=== PATIENT | male | born 1935 ===

== ENCOUNTER 2016-08-05 17:13 | Inpatient (IN) | payer MEDICARE, BC ==
[2016-08-05 17:13] VITALS: BMI 31.3
[2016-08-05] MEDS ORDERED: Sodium Chloride 0.9% 1,000 ML IV ONE (17:58)
--- NOTE | 2016-08-05 18:04 | C.PDOC ---
History Of Present Illness 81M c/o diffuse abd pain for 2 days and nausea vomiting after any PO intake today. he has a hx of multiple SBO and this feels similar. he had an episode of non-bloody diarrhea this morning. currently has nausea but no pain. Time Seen by Provider: 08/05/16 17:38 Chief Complaint (Nursing): GI Problem Past Medical History Vital Signs: Last Vital Signs Temp 98.6 F 08/05/16 17:29 Pulse 111 H 08/05/16 17:29 Resp 20 08/05/16 17:29 BP 144/93 H 08/05/16 17:29 Pulse Ox 95 08/05/16 18:49 - Medical History PMH: Diabetes, HTN, Malignancy (colon CA, rectal CA), Migraine - [facility] Procedures INSERT GASTRIC TUBE NEC (06/14/14) OTH INCIDENT APPENDECTOMY (08/08/12) OTH LYSIS-PERITONEAL ADHES (08/08/12) PARENTERAL INFUSION OF CONCENTRATED NUT. SUBSTANCE (09/27/13) PART SM BOWEL RESECT NEC (08/08/12) VACCINATION NEC (09/27/13) VENOUS CATHETERIZATION NEC (09/27/13) Family History: States: Unknown Family Hx - Social History Hx Tobacco Use: No Hx Alcohol Use: No Hx Substance Use: No - Immunization History Hx Tetanus Toxoid Vaccination: No Hx Influenza Vaccination: No Hx Pneumococcal Vaccination: No Review Of Systems Except As Marked, All Systems Reviewed And Found Negative. Constitutional: Negative for: Fever, Weakness, Malaise Cardiovascular: Negative for: Chest Pain Respiratory: Negative for: Cough, Shortness of Breath Gastrointestinal: Positive for: Nausea, Vomiting, Abdominal Pain, Diarrhea. Negative for: Melena, Hematochezia Genitourinary: Negative for: Dysuria Neurological: Negative for: Weakness, Numbness, Headache Physical Exam - Physical Exam Appears: Well, Non-toxic, No Acute Distress Skin: Warm, Dry Head: Atraumatic Nose: No Epistaxis Oral Mucosa: Moist Neck: Normal ROM Cardiovascular: Rhythm Regular Respiratory: No Decreased Breath Sounds, No Accessory Muscle Use Gastrointestinal/Abdominal: Bowel Sounds (decreased), Soft, No Tenderness, No Distention, No Guarding, No Rebound, Other (colostomy in place) Extremity: No Swelling Neurological/Psych: Oriented x3, Other (no focal deficits) ED Course And Treatment - Laboratory Results Result Diagrams: 08/05/16 18:05 08/05/16 18:05 ECG: Interpreted By Me, Viewed By Me ECG Rhythm: Sinus Rhythm (99), Atrial Fibrillation Interpretation Of ECG: LAFB No-Stemi Rate From EC O2 Sat by Pulse Oximetry: 95 Medical Decision Making Medical Decision Making: adri Gutierrez who will admit Disposition - Disposition Disposition: HOSPITALIZED Disposition Time: 19:24 Condition: STABLE - Clinical Impression Clinical Impression: Small bowel obstruction
[2016-08-05 18:10] LABS: BASO % 0.4 % (0.0-2.0); EOS % 0.2 % (0.0-4.0); HEMATOCRIT 48.9 % (35.0-51.0); LYMPH # 0.7 K/uL (1.0-4.3); LYMPH % 16.5 % (20.0-40.0); MEAN CELL VOLUME 84.8 fL (80.0-94.0); MEAN CORPUSCULAR HEMOGLOBIN 28.1 pg (27.0-31.0); MEAN CORPUSCULAR HGB CONC 33.1 g/dL (33.0-37.0); MEAN PLATELET VOLUME 8.8 fL (7.2-11.7); MONO # 0.8 K/uL (0.0-0.8); MONO % 19.3 % (0.0-10.0); RED CELL DISTRIBUTION WIDTH 14.6 % (11.5-14.5); WHITE BLOOD COUNT 4.4 K/uL (4.8-10.8)
[2016-08-05 18:15] LABS: RBC URINE 5 /hpf (0-3); URINE BACTERIA RARE (<OCC); URINE BILIRUBIN NEGATIVE (NEGATIVE); URINE BLOOD 1+ (NEGATIVE); URINE COLOR Amber (YELLOW); URINE GLUCOSE (UA) NORMAL (Normal); URINE KETONE 1+ mg/dL (NEGATIVE); URINE LEUKOCYTE ESTERASE NEG Leu/uL (Negative); URINE PROTEIN 2+ mg/dL (NEGATIVE); URINE UROBILINOGEN NORMAL mg/dL (0.2-1.0); WBC URINE 1 /hpf (0-5)
[2016-08-05 18:16] LABS: CHLORIDE 101 mmol/L (98-107)
[2016-08-05 18:17] LABS: POTASSIUM 3.9 mmol/L (3.6-5.2); SODIUM 138 mmol/L (132-148)
[2016-08-05] MEDS ORDERED: Sodium Chloride 0.9% 1,000 ML ONE (18:17)
[2016-08-05 18:19] LABS: GFR AFRICAN-AMERICAN 59
[2016-08-05 18:20] LABS: ALB/GLOB RATIO 1.2 (1.0-2.1); ALKALINE PHOSPHATASE 91 U/L (38-126); ALT/SGPT 22 U/L (21-72); AST/SGOT 19 U/L (17-59); BILIRUBIN,TOTAL 0.9 mg/dL (0.2-1.3); BLOOD UREA NITROGEN 32 mg/dL (9-20); CALCIUM 8.8 mg/dl (8.6-10.4); CARBON DIOXIDE 21 mmol/L (22-30); GLUCOSE,RANDOM 141 mg/dL (75-110); TOTAL PROTEIN 7.8 g/dL (6.3-8.3)
--- NOTE | 2016-08-05 20:08 | CP.PCM.HP ---
History of Present Illness - History of Present Illness History of Present Illness: cc: "abdominal pain and nausea/vomiting Patient is an 83 year old male with PMH of Colon CA s/p resection and chemo, Prostate CA, Rectal CA, GERD, DM, HTN, CKD presenting to the ED complaining of abdominal pain, nausea/vomiting that started about 3 days ago. Patient reported sudden on set and states symptoms have been progressively getting worse. Patient has experienced these symptom before several times. He has history of recurrent SBOs. He has had multiple abdominal surgeries in the past. Patient currently denying any pain. He rated the abdominal pain as 2/10 in severity at its worst. He describes the pain as intermittent and cramping located in the peeriumbilical region without radiation. It was accompanied by nausea/vomiting and diarrhea. He reports 4 episodes of dark wahl vomit today and two episodes each day prior. he denies hemetemesis. Patient states he has had diarrhea since tuesday along with increased flatus. Colostomy is still producing loose stool. He reports that he has had SBO 8 times previously and reports that it usually resolves on its own. Patient had to have surgery one incident for treatment. Denies fever/chills, cp, sob, palpitations, incontinence, constipation, numbness /tingling, hemotypsis, hematochezia. PMD: Dr. Gutierrez PMH: Colon CA s/p resection and chemo, Prostate CA, Rectal CA, GERD, DM, HTN, CKD, Afib Meds: Amlodipine/Benzep 10-40 Daily, Eliquis 2.5mg Daily, Metformin 1000 mg PO BID, Nexium 20 mg PO daily Allergy: NKDA PSH: Colon resection and colostomy 2007 at [place], Prostectomy 2000, Lysis of adhesions with small bowel resection Dr. Richter 2012. FH: denies Social: No tob, no alcohol, no drugs. Lives at home with Present on Admission - Present on Admission Any Indicators Present on Admission: No History of DVT/PE: No History of Uncontrolled Diabetes: No Urinary Catheter: No Decubitus Ulcer Present: No Past Patient History - Past Medical History & Family History Past Medical History?: Yes - Past Social History Smoking Status: Never Smoked - CARDIAC Hx Hypertension: Yes - PULMONARY Hx Respiratory Disorders: No - NEUROLOGICAL Hx Migraine: Yes - HEENT Hx HEENT Problems: No - RENAL Hx Chronic Kidney Disease: No - ENDOCRINE/METABOLIC Hx Endocrine Disorders: Yes Hx Diabetes Mellitus Type 2: Yes - HEMATOLOGICAL/ONCOLOGICAL Hx Blood Disorders: Yes Hx Cancer: Yes (rectal ca) - INTEGUMENTARY Hx Dermatological Problems: No - MUSCULOSKELETAL/RHEUMATOLOGICAL Hx Musculoskeletal Disorders: No Hx Falls: No - GASTROINTESTINAL Hx Gastrointestinal Disorders: Yes Hx Bowel Surgery: Yes (Colon resection) Hx Colostomy: Yes Hx Gastroesophageal Reflux: Yes Hx Nausea: Yes Hx Vomiting: Yes Other/Comment: previously has had small bowel obstructions - GENITOURINARY/GYNECOLOGICAL Hx Genitourinary Disorders: Yes Hx Prostate Problems: Yes (Prostatectomy) - PSYCHIATRIC Hx Substance Use: No - SURGICAL HISTORY Hx Surgeries: Yes Other/Comment: colostomy bag - ANESTHESIA Hx Anesthesia: Yes Hx Anesthesia Reactions: No Hx Malignant Hyperthermia: No Meds Allergies/Adverse Reactions: Allergies Allergy/AdvReac Type Severity Reaction Status Date / Time No Known Allergies Allergy Verified 08/05/16 17:20 Physical Exam - Constitutional Appears: No Acute Distress - Head Exam Head Exam: ATRAUMATIC, NORMOCEPHALIC - Eye Exam Eye Exam: EOMI, Normal appearance Pupil Exam: NORMAL ACCOMODATION - ENT Exam ENT Exam: Mucous Membranes Dry - Neck Exam Neck exam: Positive for: Normal Inspection - Respiratory Exam Respiratory Exam: Clear to Auscultation Bilateral, NORMAL BREATHING PATTERN - Cardiovascular Exam Cardiovascular Exam: Irregular Rhythm, +S1, +S2. absent: Tachycardia - GI/Abdominal Exam GI & Abdominal Exam: Diminished Bowel Sounds, Soft. absent: Firm, Guarding, Rebound, Rigid, Tenderness - Extremities Exam Extremities exam: Positive for: normal capillary refill, pedal pulses present. Negative for: calf tenderness, pedal edema - Back Exam Back exam: absent: CVA tenderness (L), CVA tenderness (R) - Neurological Exam Neurological exam: Alert, CN II-XII Intact, Oriented x3 - Psychiatric Exam Psychiatric exam: Normal Affect, Normal Mood - Skin Skin Exam: Dry, Intact, Normal Color, Warm Results - Vital Signs Recent Vital Signs: Last Vital Signs Temp 98.6 F 08/05/16 17:29 Pulse 111 H 08/05/16 17:29 Resp 20 08/05/16 17:29 BP 144/93 H 08/05/16 17:29 Pulse Ox 95 08/05/16 19:35 - Labs Result Diagrams: 08/05/16 18:05 08/05/16 18:05 Assessment & Plan - Assessment and Plan (Free Text) Plan: 1. SBO Obstructive Series NPO except meds Serial abdominal exams General Surgery Consult, Dr. Edmonds, help appreciated Zofran 4mg IVP Q6h prn D5 1/2 NS 100 cc/hr 2. Atrial Fibrillation Eliquis 2.5 mg PO daily 3. DM ISS Accuchecks Monitor Glucose 4. HTN Amlodipine 10mg PO Daily 5. Prophylactic Measures SCDs Protonix 40mg IVP daily
[2016-08-05] MEDS: Dextrose 5%/0.45% NS 1,000 ML IV SCH (20:24)
[2016-08-05] MEDS: (Novolin R) Insulin Human Regular 100 units/ml vial SC SCH (20:27)
--- NOTE | 2016-08-05 22:23 | CP.PCM.CON ---
History of Present Illness - History of Present Illness History of Present Illness: Surgery Consult Note for Dr. Edmonds CC: "Vomiting" HPI: Pt is a 81yo M w/PMHx of multiple abdominal surgeries leading to recurrent SBOs, DM2, HTN, CKD, Afib and colorectal and prostate cancer in remission admitted by medicine for nausea and vomiting. C/o nausea and dark jean baptiste vomiting x 3 days. He has had 4 prior episodes leading to admission in the past year, most recently 05/05/16 to 05/07/16. He states that his current episode is the same as he previous episodes. He ate breakfast Tuesday and didn't feel well afterwards. He vomited 3 times 08/03, had diarrhea 08/04 and vomiting 3 more times today. He states that eating and drinking incite his nausea, and after vomiting he feels some acidic pain and then relief. His last episode of vomiting was at 4pm, he has had a diarrheal BM and passed gas today. MedHx: recurrent SBO, colorectal cancer in remission, prostate cancer in remission, DM2, HTN, AFib PSH: partial SB resection 2012, partial colectomy , permanent colostomy 2006, ex lap, prostatectomy 2000, portacath and removal SocialHx: Lives with his and is retired. Has 1 adult son 27yo who lives in [place]. Denies alcohol, tobacco, illicit drug use ever. Review of Systems - Constitutional Constitutional: Daytime Sleepiness, Weight Loss. absent: Chills, Fatigue, Fever - EENT Ears: As Per HPI - Cardiovascular Cardiovascular: absent: Chest Pain, Dyspnea, Lightheadedness, Palpitations - Respiratory Respiratory: absent: Cough, Dyspnea, Wheezing - Gastrointestinal Gastrointestinal: Bloating, Diarrhea, Heartburn, Nausea, Vomiting. absent: Abdominal Pain - Genitourinary Genitourinary: absent: Change in Urinary Stream - Musculoskeletal Musculoskeletal: As Per HPI - Psychiatric Psychiatric: absent: Anxiety Past Patient History - Past Medical History & Family History Past Medical History?: Yes - Past Social History Smoking Status: Never Smoked - CARDIAC Hx Hypertension: Yes - PULMONARY Hx Respiratory Disorders: No - NEUROLOGICAL Hx Migraine: Yes - HEENT Hx HEENT Problems: No - RENAL Hx Chronic Kidney Disease: No - ENDOCRINE/METABOLIC Hx Endocrine Disorders: Yes Hx Diabetes Mellitus Type 2: Yes - HEMATOLOGICAL/ONCOLOGICAL Hx Blood Disorders: Yes Hx Cancer: Yes (rectal ca) - INTEGUMENTARY Hx Dermatological Problems: No - MUSCULOSKELETAL/RHEUMATOLOGICAL Hx Musculoskeletal Disorders: No Hx Falls: No - GASTROINTESTINAL Hx Gastrointestinal Disorders: Yes Hx Bowel Surgery: Yes (Colon resection) Hx Colostomy: Yes Hx Gastroesophageal Reflux: Yes Hx Nausea: Yes Hx Vomiting: Yes Other/Comment: previously has had small bowel obstructions - GENITOURINARY/GYNECOLOGICAL Hx Genitourinary Disorders: Yes Hx Prostate Problems: Yes (Prostatectomy) - PSYCHIATRIC Hx Substance Use: No - SURGICAL HISTORY Hx Surgeries: Yes Other/Comment: colostomy bag - ANESTHESIA Hx Anesthesia: Yes Hx Anesthesia Reactions: No Hx Malignant Hyperthermia: No Meds Allergies/Adverse Reactions: Allergies Allergy/AdvReac Type Severity Reaction Status Date / Time No Known Allergies Allergy Verified 08/05/16 17:20 - Medications Medications: Current Medications Acetaminophen (Tylenol 325mg Tab) 650 mg PO Q6 PRN PRN Reason: Pain, Mild (1-3) Amlodipine Besylate (Norvasc) 10 mg PO DAILY [facility] Apixaban (Eliquis) 2.5 mg PO DAILY [facility] Dextrose/Sodium Chloride (Dextrose 5%/0.45% Ns 1000 Ml) 1,000 mls @ 100 mls/hr IV .Q10H [facility] Last Admin: 08/05/16 20:24 Dose: 100 mls/hr Insulin Human Regular (Novolin R) 0 unit SC ACHS ANDI PRN Reason: Protocol Last Admin: 08/05/16 20:27 Dose: Not Given Metformin HCl (Glucophage) 1,000 mg PO BID [facility] Ondansetron HCl (Zofran Inj) 4 mg IVP Q6 PRN PRN Reason: Nausea/Vomiting Pantoprazole Sodium (Protonix Inj) 40 mg IVP DAILY [facility] Physical Exam - Constitutional Appears: Non-toxic, No Acute Distress - Head Exam Head Exam: NORMAL INSPECTION - Eye Exam Eye Exam: EOMI, Normal appearance Pupil Exam: NORMAL ACCOMODATION - ENT Exam ENT Exam: Mucous Membranes Moist - Neck Exam Neck exam: Negative for: Lymphadenopathy, Thyromegaly - Respiratory Exam Respiratory Exam: Clear to Auscultation Bilateral. absent: Rales, Rhonchi, Wheezes - Cardiovascular Exam Cardiovascular Exam: Tachycardia, +S1, +S2. absent: Gallop - GI/Abdominal Exam GI & Abdominal Exam: Diminished Bowel Sounds, Soft. absent: Guarding, Rebound, Rigid, Tenderness - Rectal Exam Rectal Exam: Deferred - Extremities Exam Extremities exam: Positive for: full ROM - Neurological Exam Neurological exam: Alert, CN II-XII Intact - Psychiatric Exam Psychiatric exam: Normal Affect, Normal Mood - Skin Skin Exam: Dry, Intact, Normal Color Results - Vital Signs Recent Vital Signs: Last Vital Signs Temp 98.1 F 08/05/16 21:20 Pulse 98 H 08/05/16 21:20 Resp 20 08/05/16 21:20 BP 114/77 08/05/16 21:20 Pulse Ox 96 08/05/16 21:20 - Labs Result Diagrams: 08/05/16 18:05 08/05/16 18:05 Labs: Laboratory Results - last 24 hr 08/05/16 08/05/16 20:25 21:35 POC Glucose (mg/dL) 106 143 H Assessment & Plan - Assessment and Plan (Free Text) Assessment: 81 yo M w/ PMHx of recurrent SBOs leading to hospitalization , multiple GI surgeries, colorectal cancer in remission, prostate cancer in remission, DM2, HTN, CKD presents with obstructive symptoms. 1. SBO -Afebrile, VSS -serial abdominal exams -advance diet as tolerated -NG tube deferred but will consider if patient vomits -continue medical management as per medicine team
[2016-08-06 01:32] VITALS: RESP 20
[2016-08-06] MEDS: Dextrose 5%/0.45% NS 1,000 ML IV SCH ×2 (05:50→16:18)
[2016-08-06 07:08] LABS: BASO % 0.3 % (0.0-2.0); EOS # 0.1 K/uL (0.0-0.7); EOS % 3.8 % (0.0-4.0); HEMATOCRIT 41.8 % (35.0-51.0); LYMPH # 0.9 K/uL (1.0-4.3); LYMPH % 22.9 % (20.0-40.0); MEAN CELL VOLUME 85.9 fL (80.0-94.0); MEAN CORPUSCULAR HEMOGLOBIN 28.7 pg (27.0-31.0); MEAN CORPUSCULAR HGB CONC 33.4 g/dL (33.0-37.0); MEAN PLATELET VOLUME 8.5 fL (7.2-11.7); MONO % 25.4 % (0.0-10.0); NRBC % 0.1 % (0.0-2.0); PLATELET COUNT 146 K/uL (130-400); RED CELL DISTRIBUTION WIDTH 14.6 % (11.5-14.5); WHITE BLOOD COUNT 3.9 K/uL (4.8-10.8)
[2016-08-06 07:23] LABS: INR 1.1
[2016-08-06 07:26] LABS: CHLORIDE 104 mmol/L (98-107); SODIUM 138 mmol/L (132-148)
[2016-08-06 07:27] LABS: POTASSIUM 3.7 mmol/L (3.6-5.2)
[2016-08-06 07:29] LABS: ALKALINE PHOSPHATASE 67 U/L (38-126); ALT/SGPT 19 U/L (21-72); AST/SGOT 17 U/L (17-59); BILIRUBIN,TOTAL 0.7 mg/dL (0.2-1.3); BLOOD UREA NITROGEN 30 mg/dL (9-20); CARBON DIOXIDE 26 mmol/L (22-30); GFR AFRICAN-AMERICAN > 60; TOTAL PROTEIN 6.6 g/dL (6.3-8.3)
[2016-08-06 07:30] LABS: CALCIUM 7.9 mg/dl (8.6-10.4); GLUCOSE,RANDOM 120 mg/dL (75-110)
--- NOTE | 2016-08-06 08:25 | CP.PCM.PN ---
Subjective - Date & Time of Evaluation Date of Evaluation: 08/06/16 Time of Evaluation: 08:22 - Subjective Subjective: Surgery: Dr. Edmonds Patient doing well this morning. Asks to eat and go home. Denies abdominal pain , n/v/f/c. He reports output in ostomy bag. Objective - Vital Signs/Intake and Output Vital Signs (last 24 hours): Temp Pulse Resp BP Pulse Ox 98.1 F 92 H 20 120/70 95 08/05/16 23:48 08/05/16 23:48 08/05/16 23:48 08/05/16 23:48 08/05/16 23:48 Intake and Output: 08/06/16 08/06/16 06:59 18:59 Intake Total 380 Balance 380 - Medications Medications: Current Medications Acetaminophen (Tylenol 325mg Tab) 650 mg PO Q6 PRN PRN Reason: Pain, Mild (1-3) Amlodipine Besylate (Norvasc) 10 mg PO DAILY [facility] Apixaban (Eliquis) 2.5 mg PO DAILY [facility] Dextrose/Sodium Chloride (Dextrose 5%/0.45% Ns 1000 Ml) 1,000 mls @ 100 mls/hr IV .Q10H [facility] Last Admin: 08/06/16 05:50 Dose: 100 mls/hr Insulin Human Regular (Novolin R) 0 unit SC ACHS ANDI PRN Reason: Protocol Last Admin: 08/05/16 20:27 Dose: Not Given Metformin HCl (Glucophage) 1,000 mg PO BID [facility] Ondansetron HCl (Zofran Inj) 4 mg IVP Q6 PRN PRN Reason: Nausea/Vomiting Pantoprazole Sodium (Protonix Inj) 40 mg IVP DAILY [facility] - Labs Labs: 08/06/16 06:55 08/06/16 06:55 PT 12.8 SECONDS (9.7-12.2) H 08/06/16 06:55 INR 1.1 08/06/16 06:55 APTT 29 SECONDS (21-34) 08/06/16 06:55 - Constitutional Appears: Well, Non-toxic, No Acute Distress - Head Exam Head Exam: ATRAUMATIC, NORMOCEPHALIC - Eye Exam Eye Exam: EOMI, Normal appearance - ENT Exam ENT Exam: Mucous Membranes Moist - Respiratory Exam Respiratory Exam: NORMAL BREATHING PATTERN. absent: Respiratory Distress - Cardiovascular Exam Cardiovascular Exam: REGULAR RHYTHM - GI/Abdominal Exam GI & Abdominal Exam: Soft. absent: Distended, Guarding, Rigid, Tenderness, Rebound - Neurological Exam Neurological Exam: Alert, Awake, Oriented x3 - Skin Skin Exam: Dry, Normal Color, Warm Assessment and Plan - Assessment and Plan (Free Text) Assessment: 81 y/o male w/ SBO- resolved Plan: -ok for reg soft diet -if tolerates can d/c home from surgical standpoint -follow up prn -no surgical intervention at this time -patient seen and examined w/ Dr. Grey Zafar PGY1
[2016-08-06] MEDS: (Novolin R) Insulin Human Regular 100 units/ml vial SC SCH ×3 (08:28→16:26)
[2016-08-06 08:46] LABS: EOSINOPHIL 2 % (0-4); NEUTROPHIL 49 % (50-75); TOTAL CELLS COUNTED 100
--- NOTE | 2016-08-06 09:20 | RAD ---
PROCEDURE: Radiographs of the chest and abdomen (obstructive series) HISTORY: abd pain nausea vomiting COMPARISON: Comparison is made to the previous study dated 12/03/2015 TECHNIQUE: AP radiograph of the chest, with upright and supine radiographs of the abdomen. FINDINGS: CHEST: Lungs: No evidence of acute pulmonary disease P Cardiovascular: Normal size heart. No pulmonary vascular congestion. Pleura: No pleural fluid. No pneumothorax. Other findings: None. ABDOMEN AND PELVIS: Bowel: Again seen arm moderately dilated bowel loops solid with air in the abdomen and pelvis. These findings are similar to the previous study. Free air: None. Bones: Unremarkable. Other findings: Surgical clips and postsurgical changes are seen in the pelvis. IMPRESSION: Re- demonstration of moderately dilated bowel loops solid with air in the abdomen and pelvis. Findings similar to the previous exam. No evidence of acute pulmonary disease.
[2016-08-06 11:58] VITALS: O2SAT 96
[2016-08-06 15:47] VITALS: BP 114/74; PULSE 87; TEMP 97.2
--- NOTE | 2016-08-06 16:43 | CP.PCM.DIS ---
Provider - Provider Date of Admission: 08/05/16 19:35 Attending physician: Dinesh Gutierrez Jr, MD Time Spent in preparation of Discharge (in minutes): 90 Hospital Course - Lab Results Lab Results: Most Recent Lab Values WBC 3.9 K/uL (4.8-10.8) L 08/06/16 06:55 RBC 4.87 Mil/uL (4.40-5.90) 08/06/16 06:55 Hgb 14.0 g/dL (12.0-18.0) D 08/06/16 06:55 Hct 41.8 % (35.0-51.0) 08/06/16 06:55 MCV 85.9 fL (80.0-94.0) 08/06/16 06:55 MCH 28.7 pg (27.0-31.0) 08/06/16 06:55 MCHC 33.4 g/dL (33.0-37.0) 08/06/16 06:55 RDW 14.6 % (11.5-14.5) H 08/06/16 06:55 Plt Count 146 K/uL (130-400) 08/06/16 06:55 MPV 8.5 fL (7.2-11.7) 08/06/16 06:55 Neut % (Auto) 47.6 % (50.0-75.0) L 08/06/16 06:55 Lymph % (Auto) 22.9 % (20.0-40.0) 08/06/16 06:55 Pepin % (Auto) 25.4 % (0.0-10.0) H 08/06/16 06:55 Eos % (Auto) 3.8 % (0.0-4.0) 08/06/16 06:55 Baso % (Auto) 0.3 % (0.0-2.0) 08/06/16 06:55 Neut # 1.8 K/uL (1.8-7.0) 08/06/16 06:55 Lymph # 0.9 K/uL (1.0-4.3) L 08/06/16 06:55 Pepin # 1.0 K/uL (0.0-0.8) H 08/06/16 06:55 Eos # 0.1 K/uL (0.0-0.7) 08/06/16 06:55 Baso # 0.0 K/uL (0.0-0.2) 08/06/16 06:55 Neutrophils % (Manual) 49 % (50-75) L 08/06/16 06:55 Band Neutrophils % 4 % (0-2) H 08/06/16 06:55 Lymphocytes % (Manual) 20 % (20-40) 08/06/16 06:55 Monocytes % (Manual) 25 % (0-10) H 08/06/16 06:55 Eosinophils % (Manual) 2 % (0-4) 08/06/16 06:55 Platelet Estimate Normal (NORMAL) 08/06/16 06:55 RBC Morphology Normal 08/06/16 06:55 PT 12.8 SECONDS (9.7-12.2) H 08/06/16 06:55 INR 1.1 08/06/16 06:55 APTT 29 SECONDS (21-34) 08/06/16 06:55 Sodium 138 mmol/L (132-148) 08/06/16 06:55 Potassium 3.7 mmol/L (3.6-5.2) 08/06/16 06:55 Chloride 104 mmol/L (98-107) 08/06/16 06:55 Carbon Dioxide 26 mmol/L (22-30) 08/06/16 06:55 Anion Gap 12 (10-20) 08/06/16 06:55 BUN 30 mg/dL (9-20) H 08/06/16 06:55 Creatinine 1.2 MG/DL (0.8-1.5) 08/06/16 06:55 Est GFR ( Amer) > 60 08/06/16 06:55 Est GFR (Non-Af Amer) 58 08/06/16 06:55 POC Glucose (mg/dL) 122 mg/dL (65-110) H 08/06/16 16:20 Random Glucose 120 mg/dL (75-110) H 08/06/16 06:55 Calcium 7.9 mg/dl (8.6-10.4) L 08/06/16 06:55 Total Bilirubin 0.7 mg/dL (0.2-1.3) 08/06/16 06:55 AST 17 U/L (17-59) 08/06/16 06:55 ALT 19 U/L (21-72) L 08/06/16 06:55 Alkaline Phosphatase 67 U/L (38-126) 08/06/16 06:55 Troponin I < 0.0120 ng/mL (0.00-0.120) 08/05/16 18:05 Total Protein 6.6 g/dL (6.3-8.3) 08/06/16 06:55 Albumin 3.3 g/dL (3.5-5.0) L D 08/06/16 06:55 Globulin 3.2 gm/dL (2.2-3.9) 08/06/16 06:55 Albumin/Globulin Ratio 1.0 (1.0-2.1) 08/06/16 06:55 Lipase 40 U/L (23-300) 08/05/16 18:05 Urine Color Daya (YELLOW) 08/05/16 18:05 Urine Clarity Hazy (Clear) 08/05/16 18:05 Urine pH 5.0 (5.0-8.0) 08/05/16 18:05 Ur Specific Nesmith 1.028 (1.003-1.030) 08/05/16 18:05 Urine Protein 2+ mg/dL (NEGATIVE) H 08/05/16 18:05 Urine Glucose (UA) Normal mg/dL (Normal) 08/05/16 18:05 Urine Ketones 1+ mg/dL (NEGATIVE) H 08/05/16 18:05 Urine Blood 1+ (NEGATIVE) H 08/05/16 18:05 Urine Nitrate Negative (NEGATIVE) 08/05/16 18:05 Urine Bilirubin Negative (NEGATIVE) 08/05/16 18:05 Urine Urobilinogen Normal mg/dL (0.2-1.0) 08/05/16 18:05 Ur Leukocyte Esterase Neg Katelynn/uL (Negative) 08/05/16 18:05 Urine WBC (Auto) 1 /hpf (0-5) 08/05/16 18:05 Urine RBC (Auto) 5 /hpf (0-3) H 08/05/16 18:05 Ur Squamous Epith Cells 1 /hpf (0-5) 08/05/16 18:05 Urine Bacteria Rare (<OCC) 08/05/16 18:05 - Hospital Course Hospital Course: Patient is an 83 year old male with PMH of Colon CA s/p resection and chemo, Prostate CA, Rectal CA, GERD, DM, HTN, CKD presenting to the ED complaining of abdominal pain, nausea/vomiting that started about 3 days ago. Patient reported sudden onset and states symptoms have been progressively getting worse. Patient has experienced these symptom before several times. He has history of recurrent SBOs. He has had multiple abdominal surgeries in the past. Patient currently denying any pain. He rated the abdominal pain as 2/10 in severity at its worst. He describes the pain as intermittent and cramping located in the peeriumbilical region without radiation. It was accompanied by nausea/vomiting and diarrhea. He reports 4 episodes of dark wahl vomit today and two episodes each day prior. he denies hemetemesis. Patient states he has had diarrhea since tuesday along with increased flatus. Colostomy is still producing loose stool. He reports that he has had SBO 8 times previously and reports that it usually resolves on its own. Patient had to have surgery one incident for treatment. Denies fever/chills, cp, sob, palpitations, incontinence, constipation, numbness /tingling, hemotypsis, hematochezia. The patient was admitted for possible SBO. Surgeon Dr Edmonds consulted. Patient was evaluated by surgeon. Obstructive series was done which showed mildly dilated bowel loops which were unchanged since last exam. The patient stated that he felt better after admission. His diet was advanced and patient tolerated it well. Surgery team signed off case and cleared patient for discharge. Patient had output in ostomy bag and denied abdominal pain. - Constitutional Appears: No Acute Distress - Head Exam Head Exam: ATRAUMATIC, NORMOCEPHALIC - Eye Exam Eye Exam: EOMI, Normal appearance Pupil Exam: NORMAL ACCOMODATION - ENT Exam ENT Exam: Mucous Membranes Dry - Neck Exam Neck exam: Positive for: Normal Inspection - Respiratory Exam Respiratory Exam: Clear to Auscultation Bilateral, NORMAL BREATHING PATTERN - Cardiovascular Exam Cardiovascular Exam: Irregular Rhythm, +S1, +S2. absent: Tachycardia - GI/Abdominal Exam GI & Abdominal Exam: Normal Bowel Sounds, Soft. absent: Firm, Guarding, Rebound , Rigid, Tenderness Ostomy bag in place - Extremities Exam Extremities exam: Positive for: normal capillary refill, pedal pulses present. Negative for: calf tenderness, pedal edema - Back Exam Back exam: absent: CVA tenderness (L), CVA tenderness (R) - Neurological Exam Neurological exam: Alert, CN II-XII Intact, Oriented x3 - Psychiatric Exam Psychiatric exam: Normal Affect, Normal Mood - Skin Skin Exam: Dry, Intact, Normal Color, Warm 1. SBO Symptoms resolved. Obstructive Series Advanced diet Serial abdominal exams normal General Surgery Consult, Dr. Edmonds, help appreciated- no acute intervention, clear for DC home Zofran 4mg IVP Q6h prn D5 1/2 NS 100 cc/hr 2. Atrial Fibrillation Eliquis 2.5 mg PO daily 3. DM ISS Accuchecks Monitor Glucose 4. HTN Amlodipine 10mg PO Daily 5. Prophylactic Measures SCDs Protonix 40mg IVP daily Discharge Exam - Head Exam Head Exam: ATRAUMATIC, NORMOCEPHALIC Discharge Plan - Follow Up Plan Condition: STABLE Disposition: HOME/ ROUTINE Instructions: Bowel Obstruction (DC) Additional Instructions: Patient is to be discharged home per Dr Gutierrez. Patient should continue all of his home medications. He should follow up with his PMD Dr Gutierrez in 7 days. If patient experiences recurrence of his symptoms he should return to the ED. Instructions were explained to the patient who understands.
--- NOTE | 2016-08-09 10:07 | CARD ---
APPROVED REPORT EKG Measurement Heart [id number] <Conclusion> Atrial fibrillation Left anterior fascicular block Cannot rule out Anterior infarct, age undetermined Abnormal ECG
== END 2016-08-06 20:00 | disposition home or self-care (01) | DRG 390 ==
LOC: C.ER 17:13 → C.9E 19:35 → C.5T 20:14
PROVIDERS: ADMIT Internal Medicine; ATTEND Internal Medicine
DX: K56.60 Unspecified intestinal obstruction (principal); E11.22 Type 2 diabetes mellitus with diabetic chronic kidney disease; I48.91 Unspecified atrial fibrillation; K21.9 Gastro-esophageal reflux disease without esophagitis; I12.9 Hypertensive chronic kidney disease with stage 1 through stage 4 chronic kidney disease, or unspecified chronic kidney disease; N18.9 Chronic kidney disease, unspecified; Z85.038 Personal history of other malignant neoplasm of large intestine; Z79.4 Long term (current) use of insulin; Z93.3 Colostomy status

== ENCOUNTER 2016-09-16 03:21 | Inpatient (IN) | payer MEDICARE, BC ==
[2016-09-16 03:22] VITALS: BMI 31.3
[2016-09-16 03:38] VITALS: RESP 20
[2016-09-16] MEDS ORDERED: Sodium Chloride 0.9% 500 ML IV ONE ×2 (03:50→03:55)
[2016-09-16] MEDS ORDERED: Sodium Chloride 0.9% 1,000 ML IV ONE (03:50)
[2016-09-16] MEDS ORDERED: Iohexol 240 (50 ml) PO ONE (03:51)
[2016-09-16] MEDS ORDERED: Sodium Chloride 0.9% 1,000 ML ONE (03:55)
[2016-09-16] MEDS ORDERED: Iohexol 240 (50 ml) ONE (03:56)
[2016-09-16 04:01] LABS: BASO % 0.3 % (0.0-2.0); EOS # 0.1 K/uL (0.0-0.7); EOS % 0.7 % (0.0-4.0); HEMATOCRIT 50.7 % (35.0-51.0); LYMPH # 1.4 K/uL (1.0-4.3); LYMPH % 21.2 % (20.0-40.0); MEAN CELL VOLUME 85.2 fL (80.0-94.0); MEAN CORPUSCULAR HEMOGLOBIN 28.5 pg (27.0-31.0); MEAN CORPUSCULAR HGB CONC 33.5 g/dL (33.0-37.0); MEAN PLATELET VOLUME 8.9 fL (7.2-11.7); MONO % 14.1 % (0.0-10.0); RED CELL DISTRIBUTION WIDTH 14.7 % (11.5-14.5)
[2016-09-16 04:09] LABS: POTASSIUM 3.9 mmol/L (3.6-5.2)
[2016-09-16 04:11] LABS: ALB/GLOB RATIO 1.2 (1.0-2.1); BILIRUBIN,TOTAL 1.1 mg/dL (0.2-1.3); TOTAL PROTEIN 8.2 g/dL (6.3-8.3)
[2016-09-16 04:12] LABS: CALCIUM 9.1 mg/dl (8.6-10.4)
[2016-09-16 04:17] LABS: WHITE BLOOD COUNT 6.8 K/uL (4.8-10.8)
[2016-09-16 04:29] LABS: RBC URINE 4 /hpf (0-3); URINE BILIRUBIN NEGATIVE (NEGATIVE); URINE BLOOD NEGATIVE (NEGATIVE); URINE COLOR Amber (YELLOW); URINE GLUCOSE (UA) NORMAL (Normal); URINE KETONE 1+ mg/dL (NEGATIVE); URINE LEUKOCYTE ESTERASE NEG Leu/uL (Negative); URINE PROTEIN 1+ mg/dL (NEGATIVE); WBC URINE < 1 /hpf (0-5)
--- NOTE | 2016-09-16 04:33 | C.PDOC ---
History Of Present Illness 81 year old male presents to the ED with complaints of abdominal pain, vomiting and diarrhea for two days, worsening last night prompting visit to ED. Patient notes a history of bowel obstruction and denies any fever, chills, or urinary symptoms. Chief Complaint (Nursing): GI Problem History Per: Patient History/Exam Limitations: no limitations Onset/Duration Of Symptoms: Days (2 days ) Current Symptoms Are (Timing): Worse Location Of Pain/Discomfort: Diffuse Radiation Of Pain To:: None Quality Of Discomfort: "Pain" Associated Symptoms: Vomiting, Diarrhea. denies: Fever, Chills, Nausea Recent travel outside of the [place]: No Past Medical History Reviewed: Historical Data, Nursing Documentation, Vital Signs Vital Signs: Last Vital Signs Temp 97.8 F 09/16/16 03:33 Pulse 85 09/16/16 03:33 Resp 20 09/16/16 03:33 BP 126/82 09/16/16 03:33 Pulse Ox 97 09/16/16 06:41 - Medical History PMH: Atrial Fibrillation (on eliquis), Diabetes, HTN, Malignancy (colon CA, rectal CA), Migraine - [facility] Procedures INSERT GASTRIC TUBE NEC (06/14/14) OTH INCIDENT APPENDECTOMY (08/08/12) OTH LYSIS-PERITONEAL ADHES (08/08/12) PARENTERAL INFUSION OF CONCENTRATED NUT. SUBSTANCE (09/27/13) PART SM BOWEL RESECT NEC (08/08/12) VACCINATION NEC (09/27/13) VENOUS CATHETERIZATION NEC (09/27/13) Family History: States: Unknown Family Hx - Social History Hx Tobacco Use: No Hx Alcohol Use: No Hx Substance Use: No - Immunization History Hx Tetanus Toxoid Vaccination: No Hx Influenza Vaccination: No Hx Pneumococcal Vaccination: No Review Of Systems Constitutional: Negative for: Fever, Chills, Sweats Cardiovascular: Negative for: Chest Pain, Palpitations Respiratory: Negative for: Cough, Shortness of Breath Gastrointestinal: Positive for: Vomiting, Abdominal Pain, Diarrhea. Negative for: Nausea Genitourinary: Negative for: Dysuria, Hematuria Physical Exam - Physical Exam Appears: Non-toxic, No Acute Distress Skin: Warm, Dry Head: Atraumatic Oral Mucosa: Moist Neck: Supple Chest: Symmetrical, No Deformity Cardiovascular: Rhythm Regular Gastrointestinal/Abdominal: Soft, No Tenderness, No Distention, No Guarding, No Rebound, Other (Colostomy LLQ area. Liquid brown color stool. ) Extremity: Normal ROM, No Tenderness Neurological/Psych: Oriented x3 ED Course And Treatment - Laboratory Results Result Diagrams: 09/16/16 03:57 09/16/16 03:57 O2 Sat by Pulse Oximetry: 97 (room air ) - CT Scan/US CT Abdomen and Pelvis With Intravenous Contrast Other Rad Studies (CT/US): Read By Radiologist, Radiology Report Reviewed CT/US Interpretation: IMPRESSION: 1. Findings compatible with small bowel obstruction. 2. Incidental/non-acute findings are described above. Disposition Discussed With DrArthur: Dinesh Gutierrez Jr. Doctor Will See Patient In The: Hospital Counseled Patient/Family Regarding: Diagnosis - Disposition Disposition: HOSPITALIZED Disposition Time: 06:40 Condition: STABLE - Clinical Impression Clinical Impression: Partial small bowel obstruction - Scribe Statement The provider has reviewed the documentation as recorded by the Noriibchang Aldrich All medical record entries made by the Noriibchang were at my direction and personally dictated by me. I have reviewed the chart and agree that the record accurately reflects my personal performance of the history, physical exam, medical decision making, and the department course for this patient. I have also personally directed, reviewed, and agree with the discharge instructions and disposition.
--- NOTE | 2016-09-16 06:32 | CT ---
EXAM: CT Abdomen and Pelvis With Intravenous Contrast CLINICAL HISTORY: 81 years old, male; Pain; Abdominal pain; Patient HX: 05-05-16; Additional info: Abd pain TECHNIQUE: Axial computed tomography images of the abdomen and pelvis with intravenous contrast. This CT exam was performed using one or more of the following dose reduction techniques: automated exposure control, adjustment of the mA and/or kV according to patient size, and/or use of iterative reconstruction technique. Coronal and sagittal reformatted images were created and reviewed. CONTRAST: 240 mL of oral administered intravenously. COMPARISON: CT - ABD PELVIS W/O PO OR IV CONT 05/05/2016 3:39:30 AM FINDINGS: Limitations: Lack of intravenous contrast. Motion artifact - mild. Lower thorax: Minimal atelectasis/scarring. Elevated RIGHT hemidiaphragm. Coronary artery calcifications. ABDOMEN: Liver: Unremarkable. No mass. Gallbladder and bile ducts: No calcified stones. No ductal dilation. Pancreas: No ductal dilation. No mass. Spleen: No splenomegaly. Adrenals: No mass. Kidneys and ureters: Mild stranding about kidneys, nonspecific. No renal calculi. No hydronephrosis. Stomach and bowel: Partial colectomy. Postsurgical changes of small bowel. Colostomy within LEFT lower quadrant. Moderate to markedly dilated loops of mid to distal small bowel. Nondistended distal most small bowel. Transition point within pelvis. Appendix: No findings to suggest acute appendicitis. PELVIS: Bladder: Unremarkable. Reproductive: Prostate not visualized. Subperitoneal space: Soft tissue density/stranding within presacral region, grossly stable. ABDOMEN and PELVIS: Intraperitoneal space: No significant fluid collection. No free air. Bones/joints: Degenerative changes of spine. No acute fracture. Soft tissues: Postsurgical changes of abdominal wall. Vasculature: [id number] atherosclerotic disease. No aneurysm. Lymph nodes: No pathologically enlarged lymph nodes. IMPRESSION: 1. Findings compatible with small bowel obstruction. 2. Incidental/non-acute findings are described above.
--- NOTE | 2016-09-16 12:52 | CP.PCM.CON ---
History of Present Illness - History of Present Illness History of Present Illness: SURGERY CONSULT NOTE FOR DR. LOUNG 81M presents with nausea and vomiting that started yesterday. Patient states symptoms have resolved as soon as he came to the hospital around midnight. Patient states he also feels like this every couple of months for the past 5 year. He states it always resolves on his own ans he is usually given fluids and anti-nausea when he comes to the hospital. He states he feels great now and wants to go home. Denies abdominal pain, nausea, vomiting, fevers, chills. He states he has been having stool come from his stoma and the most recent was 5 minutes ago before seeing him. PMH: rectal cancer, HTN PSH: partial colectomy, colostomy Social: denies tobacco/alcohol abuse Allergies: NKDA Past Patient History - Past Medical History & Family History Past Medical History?: Yes - Past Social History Smoking Status: Never Smoked - CARDIAC Hx Atrial Fibrillation: Yes (on eliquis) Hx Hypertension: Yes - PULMONARY Hx Respiratory Disorders: No - NEUROLOGICAL Hx Migraine: Yes - HEENT Hx HEENT Problems: No - RENAL Hx Chronic Kidney Disease: No - ENDOCRINE/METABOLIC Hx Diabetes Mellitus Type 2: Yes - HEMATOLOGICAL/ONCOLOGICAL Hx Blood Disorders: Yes Hx Cancer: Yes (rectal ca) - INTEGUMENTARY Hx Dermatological Problems: No - MUSCULOSKELETAL/RHEUMATOLOGICAL Hx Musculoskeletal Disorders: No Hx Falls: No - GASTROINTESTINAL Hx Gastrointestinal Disorders: Yes Hx Bowel Surgery: Yes (Colon resection) Hx Colostomy: Yes Hx Gastroesophageal Reflux: Yes Hx Nausea: Yes Hx Vomiting: Yes Other/Comment: previously has had small bowel obstructions - GENITOURINARY/GYNECOLOGICAL Hx Genitourinary Disorders: Yes Hx Prostate Problems: Yes (Prostatectomy) - PSYCHIATRIC Hx Substance Use: No - SURGICAL HISTORY Hx Surgeries: Yes Other/Comment: colostomy bag, prostectomy, Colon resection - ANESTHESIA Hx Anesthesia: Yes Hx Anesthesia Reactions: No Hx Malignant Hyperthermia: No Meds Allergies/Adverse Reactions: Allergies Allergy/AdvReac Type Severity Reaction Status Date / Time No Known Allergies Allergy Verified 09/16/16 03:38 - Medications Medications: Current Medications Apixaban (Eliquis) 2.5 mg PO DAILY [facility] Sodium Chloride (Sodium Chloride 0.9%) 1,000 mls @ 100 mls/hr IV .Q10H ONE Stop: 09/16/16 13:49 Dextrose/Sodium Chloride (Dextrose 5%-0.45% Ns 500 Ml) 500 mls @ 100 mls/hr IV .Q5H ONE Stop: 09/16/16 17:03 Ondansetron HCl (Zofran Inj) 4 mg IVP DAILY@ONCE PRN PRN Reason: Pain, Mild (1-3) Physical Exam - Constitutional Appears: Non-toxic, No Acute Distress - Head Exam Head Exam: ATRAUMATIC - Eye Exam Eye Exam: EOMI, PERRL - ENT Exam ENT Exam: Mucous Membranes Moist - Respiratory Exam Respiratory Exam: Clear to Auscultation Bilateral, NORMAL BREATHING PATTERN - Cardiovascular Exam Cardiovascular Exam: REGULAR RHYTHM, +S1, +S2 - GI/Abdominal Exam GI & Abdominal Exam: Soft. absent: Distended, Firm, Guarding, Rebound, Rigid, Tenderness Additional comments: colostomy in place with output - Neurological Exam Neurological exam: Alert, Oriented x3 - Psychiatric Exam Psychiatric exam: Normal Affect, Normal Mood - Skin Skin Exam: Dry, Intact, Normal Color, Warm Results - Vital Signs Recent Vital Signs: Last Vital Signs Temp 98.4 F 09/16/16 09:12 Pulse 93 H 09/16/16 09:12 Resp 20 09/16/16 09:12 BP 106/71 09/16/16 09:12 Pulse Ox 97 09/16/16 09:12 - Labs Result Diagrams: 09/16/16 03:57 09/16/16 03:57 Assessment & Plan - Assessment and Plan (Free Text) Assessment: 81M with Nausea and vomiting, likely from resolved SBO Plan: - Advance diet - nausea control - monitor colostomy output - no surgical intervention at this time - will continue to follow Will d/w Dr. Grey Burns, PGY1
[2016-09-16] MEDS: Pantoprazole 40 mg EC Tab PO SCH (16:44)
--- NOTE | 2016-09-16 18:07 | CP.PCM.HP ---
History of Present Illness - History of Present Illness History of Present Illness: 81 M with PMH of Colon CA s/p resection and chemo, Prostate CA, Rectal CA, GERD , DM, HTN, presented to ER at 3am with vomiting and diarrhea. The vomiting and diarrhea began 2 days prior on 09/14. Since then hes had 3 episodes of vomiting and 7 episodes of diarrhea. He admits to diffuse abdominal pain before vomiting which resolves once he vomits. He rates the pain 4/10. He describes the vomit as "black/dark jean baptiste and says the diarrhea looks normal. He didnt take any medications to resolve the symptoms. He says this is the 3rd time coming to ED for similiar symptoms this year and he came to ED 8x last year for similiar symptoms. The last occurance of similiar symptoms occured 1 month ago. He denies bloody stool, bloody emesis, chest pain, shortness of breath, lightheadedness. PMD: Dr. Gutierrez PMH: Colon CA s/p resection and chemo, Prostate CA, Rectal CA, GERD, DM, HTN, CKD, Afib Meds: Amlodipine/Benzep 10-40 Daily, Eliquis 2.5mg Daily, Metformin 1000 mg PO BID, esomeprazole 20 mg po daily Allergy: NKDA PSH: Colon resection and colostomy 2007 at [facility], Prostectomy 2000, Lysis of adhesions with small bowel resection Dr. Richter 2012. FH: denies Social: No tob, no alcohol, no drugs. Lives at home with Present on Admission - Present on Admission Any Indicators Present on Admission: No History of DVT/PE: No History of Uncontrolled Diabetes: No Urinary Catheter: No Decubitus Ulcer Present: No Review of Systems - Gastrointestinal Gastrointestinal: As Per HPI Past Patient History - Past Medical History & Family History Past Medical History?: Yes - Past Social History Smoking Status: Never Smoked Alcohol: None Drugs: Denies Home Situation {Lives}: With Family - CARDIAC Hx Atrial Fibrillation: Yes (on eliquis) Hx Hypertension: Yes - PULMONARY Hx Respiratory Disorders: No - NEUROLOGICAL Hx Migraine: Yes - HEENT Hx HEENT Problems: No - RENAL Hx Chronic Kidney Disease: No - ENDOCRINE/METABOLIC Hx Diabetes Mellitus Type 2: Yes - HEMATOLOGICAL/ONCOLOGICAL Hx Blood Disorders: Yes Hx Cancer: Yes (rectal ca) - INTEGUMENTARY Hx Dermatological Problems: No - MUSCULOSKELETAL/RHEUMATOLOGICAL Hx Musculoskeletal Disorders: No Hx Falls: No - GASTROINTESTINAL Hx Gastrointestinal Disorders: Yes Hx Bowel Surgery: Yes (Colon resection) Hx Colostomy: Yes Hx Gastroesophageal Reflux: Yes Hx Nausea: Yes Hx Vomiting: Yes Other/Comment: previously has had small bowel obstructions - GENITOURINARY/GYNECOLOGICAL Hx Genitourinary Disorders: Yes Hx Prostate Problems: Yes (Prostatectomy) - PSYCHIATRIC Hx Substance Use: No - SURGICAL HISTORY Hx Surgeries: Yes Other/Comment: colostomy bag, prostectomy, Colon resection - ANESTHESIA Hx Anesthesia: Yes Hx Anesthesia Reactions: No Hx Malignant Hyperthermia: No Meds Allergies/Adverse Reactions: Allergies Allergy/AdvReac Type Severity Reaction Status Date / Time No Known Allergies Allergy Verified 09/16/16 03:38 Physical Exam - Constitutional Appears: Well - Head Exam Head Exam: ATRAUMATIC, NORMAL INSPECTION - Eye Exam Eye Exam: EOMI, Normal appearance Pupil Exam: PERRL - ENT Exam ENT Exam: Mucous Membranes Moist - Neck Exam Neck exam: Positive for: Normal Inspection - Respiratory Exam Respiratory Exam: Clear to Auscultation Bilateral, NORMAL BREATHING PATTERN. absent: Rales, Rhonchi, Wheezes, Respiratory Distress - Cardiovascular Exam Cardiovascular Exam: REGULAR RHYTHM, RRR, +S1, +S2. absent: Systolic Murmur - GI/Abdominal Exam GI & Abdominal Exam: Diminished Bowel Sounds - Rectal Exam Rectal Exam: Deferred - Extremities Exam Extremities exam: Positive for: full ROM Additional comments: varicose veins bilaterally - Neurological Exam Neurological exam: Alert, CN II-XII Intact, Oriented x3 - Psychiatric Exam Psychiatric exam: Normal Affect, Normal Mood - Skin Skin Exam: Normal Color Results - Vital Signs Recent Vital Signs: Last Vital Signs Temp 98.4 F 09/16/16 16:10 Pulse 113 H 09/16/16 16:10 Resp 20 09/16/16 16:10 BP 113/75 09/16/16 16:10 Pulse Ox 95 09/16/16 16:10 - Labs Result Diagrams: 09/16/16 03:57 09/16/16 03:57 Labs: Laboratory Results - last 24 hr 09/16/16 16:25 POC Glucose (mg/dL) 135 H Assessment & Plan (1) Partial small bowel obstruction Assessment and Plan: CT impression of small bowel obstruction normal output in colostomy bag General surgery consult, Dr. Edmonds, help appreciated Liquid diet Zofran 4mg IVP Q6h prn D5 1/2 NS 100cc/hr 500cc total Most likely discharge tomorrow, patient to have condition managed outpatient, as per Dr Gutierrez Status: Acute (2) Afib Assessment and Plan: Eliquis 2.5 mg PO daily Status: Chronic (3) Diabetes Assessment and Plan: Accuchecks Monitor Glucose Status: Chronic (4) Hypertension Assessment and Plan: Amlodipine 10mg PO Daily Status: Chronic (5) Prophylactic measure Assessment and Plan: Protonix 40mg PO daily Status: Acute
[2016-09-17 07:35] LABS: POTASSIUM 3.8 mmol/L (3.6-5.2)
[2016-09-17 07:37] LABS: BILIRUBIN,TOTAL 1.1 mg/dL (0.2-1.3)
[2016-09-17 07:38] LABS: CALCIUM 8.5 mg/dl (8.6-10.4); TOTAL PROTEIN 6.6 g/dL (6.3-8.3)
[2016-09-17] MEDS: Pantoprazole 40 mg EC Tab PO SCH (09:23)
--- NOTE | 2016-09-17 10:50 | CP.PCM.PN ---
Subjective - Date & Time of Evaluation Date of Evaluation: 09/17/16 Time of Evaluation: 07:45 - Subjective Subjective: SURGERY NOTE FOR DR. LUONG 81M seen and examined at bedside. Patient states he still has no pain, no nausea , no vomiting. Doing well and having output out the ostomy. Tolerating liquids. Objective - Vital Signs/Intake and Output Vital Signs (last 24 hours): Temp Pulse Resp BP Pulse Ox 98.2 F 91 H 20 128/86 95 09/17/16 08:24 09/17/16 08:24 09/17/16 08:24 09/17/16 08:24 09/17/16 08:24 Intake and Output: 09/17/16 09/17/16 06:59 18:59 Intake Total 0 Balance 0 - Medications Medications: Current Medications Amlodipine Besylate (Norvasc) 10 mg PO DAILY [facility] Last Admin: 09/17/16 09:23 Dose: 10 mg Apixaban (Eliquis) 2.5 mg PO DAILY [facility] Last Admin: 09/17/16 09:23 Dose: 2.5 mg Ondansetron HCl (Zofran Inj) 4 mg IVP Q6 PRN PRN Reason: Nausea/Vomiting Pantoprazole Sodium (Protonix Ec Tab) 40 mg PO DAILY [facility] Last Admin: 09/17/16 09:23 Dose: 40 mg - Labs Labs: 09/17/16 07:04 - Constitutional Appears: Non-toxic, No Acute Distress - Respiratory Exam Respiratory Exam: Clear to Ausculation Bilateral, NORMAL BREATHING PATTERN - Cardiovascular Exam Cardiovascular Exam: REGULAR RHYTHM, +S1, +S2 - GI/Abdominal Exam GI & Abdominal Exam: Soft. absent: Distended, Firm, Guarding, Rigid, Tenderness , Rebound Additional comments: stoma pink and patent - Neurological Exam Neurological Exam: Alert, Awake Assessment and Plan - Assessment and Plan (Free Text) Assessment: 81M with possible SBO, resolved Plan: - advance diet - continue ostomy care - No surgical intervention Discussed with Dr. Grey Burns, PGY1
[2016-09-17 17:02] VITALS: BP 117/79; PULSE 94; TEMP 97.7; O2SAT 97
--- NOTE | 2016-09-17 18:51 | CP.PCM.DIS ---
Provider - Provider Date of Admission: 09/16/16 06:42 Attending physician: Dinesh Gutierrez Jr, MD Consults: Dr. Edmonds - General Surgery Time Spent in preparation of Discharge (in minutes): 35 Diagnosis - Discharge Diagnosis (1) Partial small bowel obstruction Status: Acute (2) Afib Status: Chronic (3) Diabetes Status: Chronic (4) Hypertension Status: Chronic (5) Prophylactic measure Status: Acute Hospital Course - Lab Results Lab Results: Most Recent Lab Values WBC 6.8 K/uL (4.8-10.8) D 09/16/16 03:57 RBC 5.96 Mil/uL (4.40-5.90) H 09/16/16 03:57 Hgb 17.0 g/dL (12.0-18.0) D 09/16/16 03:57 Hct 50.7 % (35.0-51.0) 09/16/16 03:57 MCV 85.2 fL (80.0-94.0) 09/16/16 03:57 MCH 28.5 pg (27.0-31.0) 09/16/16 03:57 MCHC 33.5 g/dL (33.0-37.0) 09/16/16 03:57 RDW 14.7 % (11.5-14.5) H 09/16/16 03:57 Plt Count 198 K/uL (130-400) 09/16/16 03:57 MPV 8.9 fL (7.2-11.7) 09/16/16 03:57 Neut % (Auto) 63.7 % (50.0-75.0) 09/16/16 03:57 Lymph % (Auto) 21.2 % (20.0-40.0) 09/16/16 03:57 [place] % (Auto) 14.1 % (0.0-10.0) H 09/16/16 03:57 Eos % (Auto) 0.7 % (0.0-4.0) 09/16/16 03:57 Baso % (Auto) 0.3 % (0.0-2.0) 09/16/16 03:57 Neut # 4.3 K/uL (1.8-7.0) 09/16/16 03:57 Lymph # 1.4 K/uL (1.0-4.3) 09/16/16 03:57 [place] # 1.0 K/uL (0.0-0.8) H 09/16/16 03:57 Eos # 0.1 K/uL (0.0-0.7) 09/16/16 03:57 Baso # 0.0 K/uL (0.0-0.2) 09/16/16 03:57 Sodium 142 mmol/L (132-148) 09/17/16 07:04 Potassium 3.8 mmol/L (3.6-5.2) 09/17/16 07:04 Chloride 109 mmol/L (98-107) H 09/17/16 07:04 Carbon Dioxide 22 mmol/L (22-30) 09/17/16 07:04 Anion Gap 15 (10-20) 09/17/16 07:04 BUN 29 mg/dL (9-20) H 09/17/16 07:04 Creatinine 1.4 MG/DL (0.8-1.5) 09/17/16 07:04 Est GFR ( Amer) 59 09/17/16 07:04 Est GFR (Non-Af Amer) 49 09/17/16 07:04 POC Glucose (mg/dL) 117 mg/dL (65-110) H 09/17/16 16:19 Random Glucose 88 mg/dL (75-110) 09/17/16 07:04 Calcium 8.5 mg/dl (8.6-10.4) L 09/17/16 07:04 Total Bilirubin 1.1 mg/dL (0.2-1.3) 09/17/16 07:04 AST 21 U/L (17-59) 09/17/16 07:04 ALT 19 U/L (21-72) L 09/17/16 07:04 Alkaline Phosphatase 82 U/L (38-126) 09/17/16 07:04 Total Protein 6.6 g/dL (6.3-8.3) 09/17/16 07:04 Albumin 3.3 g/dL (3.5-5.0) L D 09/17/16 07:04 Globulin 3.2 gm/dL (2.2-3.9) 09/17/16 07:04 Albumin/Globulin Ratio 1.0 (1.0-2.1) 09/17/16 07:04 Lipase 44 U/L (23-300) 09/16/16 03:57 Urine Color Daya (YELLOW) 09/16/16 03:50 Urine Clarity Hazy (Clear) 09/16/16 03:50 Urine pH 5.0 (5.0-8.0) 09/16/16 03:50 Ur Specific [place] 1.029 (1.003-1.030) 09/16/16 03:50 Urine Protein 1+ mg/dL (NEGATIVE) H 09/16/16 03:50 Urine Glucose (UA) Normal mg/dL (Normal) 09/16/16 03:50 Urine Ketones 1+ mg/dL (NEGATIVE) H 09/16/16 03:50 Urine Blood Negative (NEGATIVE) 09/16/16 03:50 Urine Nitrate Negative (NEGATIVE) 09/16/16 03:50 Urine Bilirubin Negative (NEGATIVE) 09/16/16 03:50 Urine Urobilinogen 2.0 mg/dL (0.2-1.0) 09/16/16 03:50 Ur Leukocyte Esterase Neg Katelynn/uL (Negative) 09/16/16 03:50 Urine WBC (Auto) < 1 /hpf (0-5) 09/16/16 03:50 Urine RBC (Auto) 4 /hpf (0-3) H 09/16/16 03:50 Ur Squamous Epith Cells 1 /hpf (0-5) 09/16/16 03:50 Hyaline Casts 6-10 /lpf (0-2) H 09/16/16 03:50 - Hospital Course Hospital Course: History of Present Illness: CC: "I'm having stomach pain again" 81 M with PMH of Colon CA s/p resection and chemo, Prostate CA, Rectal CA, GERD , DM, HTN, presented to ER at 3am with vomiting and diarrhea. The vomiting and diarrhea began 2 days prior on 09/14. Since then hes had 3 episodes of vomiting and 7 episodes of diarrhea. He admits to diffuse abdominal pain before vomiting which resolves once he vomits. He rates the pain 4/10. He describes the vomit as "black/dark jean baptiste and says the diarrhea looks normal. He didnt take any medications to resolve the symptoms. He says this is the 3rd time coming to ED for similiar symptoms this year and he came to ED 8x last year for similiar symptoms. The last occurance of similiar symptoms occured 1 month ago. He denies bloody stool, bloody emesis, chest pain, shortness of breath, lightheadedness. PMD: Dr. Gutierrez PMH: Colon CA s/p resection and chemo, Prostate CA, Rectal CA, GERD, DM, HTN, CKD, Afib Meds: Amlodipine/Benzep 10-40 Daily, Eliquis 2.5mg Daily, Metformin 1000 mg PO BID, esomeprazole 20 mg po daily Allergy: NKDA PSH: Colon resection and colostomy 2006 at [facility], Prostectomy 2000, Lysis of adhesions with small bowel resection Dr. Richter 2012. FH: denies Social: No tob, no alcohol, no drugs. Lives at home with Hospital Course: ED physician ordered abd/pelvis CT with findings compatible with small bowel obstruction. Patient was admitted and Dr. Edmonds from Surgery was consulted. A liquid diet was started. Patient was given zofran 4mg IVP Q6h prn for nausea. Patient was monitored for his other conditions. For Afib patient was given eliquis 2.5 mg PO daily. For DM patient's glucose levels were monitored. For hypertension patient was given amlodipine 10mg PO daily. Per Dr. Edmonds no surgical intervention is indicated at this time. Patient is okay to discharge as per Dr. Edmonds and Dr. Gutierrez. Patient should follow up with Dr. Gutierrez in 1 week. Discharge Exam - Head Exam Head Exam: ATRAUMATIC, NORMAL INSPECTION - Eye Exam Eye Exam: EOMI, Normal appearance - ENT Exam ENT Exam: Mucous Membranes Moist - Neck Exam Neck exam: Full Rom - Respiratory Exam Respiratory Exam: NORMAL BREATHING PATTERN. absent: Rales, Rhonchi, Wheezes - Cardiovascular Exam Cardiovascular Exam: Irregular Rhythm - GI/Abdominal Exam GI & Abdominal Exam: Normal Bowel Sounds - Rectal Exam Rectal Exam: Deferred - Extremities Exam Extremities exam: full ROM - Neurological Exam Neurological exam: Alert, CN II-XII Intact, Oriented x3 - Psychiatric Exam Psychiatric exam: Normal Affect, Normal Mood - Skin Skin Exam: Normal Color, Warm Discharge Plan - Follow Up Plan Condition: STABLE Disposition: HOME/ ROUTINE Instructions: Acute Abdominal Pain (DC), Acute Abdominal Pain (GEN), Bowel Obstruction (DC) Additional Instructions: Patient is to be discharged home per Dr Gutierrez. Patient should continue all of his home medications. He should follow up with his PMD Dr Gutierrez in 7 days. If patient experiences recurrence of his symptoms he should return to the ED. Instructions were explained to the patient who understands. Referrals: Dinesh Gutierrez Jr., MD [Medical Doctor] -
== END 2016-09-17 18:25 | disposition home or self-care (01) | DRG 390 ==
LOC: C.ER 03:21 → C.3T 06:42
PROVIDERS: ADMIT Internal Medicine; ATTEND Internal Medicine
DX: K56.60 Unspecified intestinal obstruction (principal); E11.22 Type 2 diabetes mellitus with diabetic chronic kidney disease; I48.91 Unspecified atrial fibrillation; I12.9 Hypertensive chronic kidney disease with stage 1 through stage 4 chronic kidney disease, or unspecified chronic kidney disease; G43.909 Migraine, unspecified, not intractable, without status migrainosus; N18.9 Chronic kidney disease, unspecified; K21.9 Gastro-esophageal reflux disease without esophagitis; Z85.038 Personal history of other malignant neoplasm of large intestine; Z85.048 Personal history of other malignant neoplasm of rectum, rectosigmoid junction, and anus; Z85.46 Personal history of malignant neoplasm of prostate; Z90.49 Acquired absence of other specified parts of digestive tract; Z79.01 Long term (current) use of anticoagulants; Z93.3 Colostomy status

== ENCOUNTER 2016-11-25 14:16 | Inpatient (IN) | payer MEDICARE, BC ==
[2016-11-25 14:35] VITALS: BMI 28.3
[2016-11-25] MEDS ORDERED: Sodium Chloride 0.9% 1,000 ML IV ONE (14:44)
--- NOTE | 2016-11-25 14:58 | C.PDOC ---
History Of Present Illness 81 yr old male with PMHx of colon cancer, s/p colon and rectal resection, colostomy and prostate cancer, states the course has been complicated due to frequent small bowel obstructions which typically resolves spontaneously. Patient has frequent admissions for vomiting and diarrhea. Patient presents today with vomiting and diarrhea which all started yesterday. Patient reports of multiple episode of watery diarrhea in his colostomy bag but states he was able to eat and drink. Patient states this morning, he tried to have something to eat and started vomited. Patient states he still has watery diarrhea in the colostomy bag. Also reports of mild diffuse abdominal pain. States last episode was in August, when he was evaluated and admitted. Currently patient denies fever , chills, chest pain, SOB, dysuria, weakness or numbness. Time Seen by Provider: 11/25/16 14:36 Chief Complaint (Nursing): GI Problem History Per: Patient History/Exam Limitations: no limitations Onset/Duration Of Symptoms: Days (1) Past Medical History Reviewed: Historical Data, Nursing Documentation, Vital Signs Vital Signs: Last Vital Signs Temp 98.3 F 11/25/16 14:34 Pulse 96 H 11/25/16 14:34 Resp 18 11/25/16 14:34 BP 129/85 11/25/16 14:34 Pulse Ox 94 L 11/25/16 15:03 - Medical History PMH: Atrial Fibrillation (on eliquis), Diabetes, HTN, Malignancy (colon CA, rectal CA), Migraine - [facility] Procedures INSERT GASTRIC TUBE NEC (06/14/14) OTH INCIDENT APPENDECTOMY (08/08/12) OTH LYSIS-PERITONEAL ADHES (08/08/12) PARENTERAL INFUSION OF CONCENTRATED NUT. SUBSTANCE (09/27/13) PART SM BOWEL RESECT NEC (08/08/12) VACCINATION NEC (09/27/13) VENOUS CATHETERIZATION NEC (09/27/13) Family History: States: No Known Family Hx - Social History Hx Tobacco Use: No Hx Alcohol Use: No Hx Substance Use: No - Immunization History Hx Tetanus Toxoid Vaccination: No Hx Influenza Vaccination: No Hx Pneumococcal Vaccination: No Review Of Systems Except As Marked, All Systems Reviewed And Found Negative. Constitutional: Negative for: Fever, Chills Cardiovascular: Negative for: Chest Pain Respiratory: Negative for: Shortness of Breath Gastrointestinal: Positive for: Vomiting, Abdominal Pain (Mild ), Diarrhea ( Watery ) Genitourinary: Negative for: Dysuria Neurological: Negative for: Weakness, Numbness Physical Exam - Physical Exam Appears: Non-toxic, No Acute Distress, Other ((+) Appears dehydrated. Breath smells ketotic.) Skin: Warm, Dry, No Rash Head: Atraumatic, Normacephalic Oral Mucosa: Dry Chest: Symmetrical, No Tenderness Cardiovascular: Rhythm Regular, No Murmur Respiratory: Normal Breath Sounds, No Rales, No Rhonchi, No Wheezing Gastrointestinal/Abdominal: Bowel Sounds (High pitched.), Soft, Tenderness ( Mild diffuse tenderness.), No Guarding, No Rebound, Other ((+) Colostomy bag present, with brown liquid stool.) Extremity: Normal ROM, No Swelling Neurological/Psych: Oriented x3, Normal Speech, Normal Motor ED Course And Treatment - Laboratory Results Result Diagrams: 11/25/16 15:21 11/25/16 15:21 Lab Interpretation: Abnormal (WBC 3.2 with 13% bands, BUN 26) O2 Sat by Pulse Oximetry: 94 (RA ) Pulse Ox Interpretation: Normal - Other Rad Obstructive series X-Ray: Interpreted by Me Interpretation: shows with markedly dilated small bowel consistent with small bowel obstruction. Reevaluation Time: 16:06 Reassessment Condition: Improved (after medication and IV fluids) - Physician Consult Information Physician Contacted: Dinesh Gutierrez Jr. Outcome Of Conversation: He knows the patient well. He will admit for bowel obstruction and surgical consult with Dr Corado. Medical Decision Making Medical Decision Making: PLAN: * X-Ray - Obstructive Series * CBC * CMP * Urinalysis * Zofran IVP * Sodium Chloride IV Disposition - Disposition Disposition: HOSPITALIZED Disposition Time: 16:08 Condition: STABLE - POA Present On Arrival: None - Clinical Impression Clinical Impression: Partial small bowel obstruction - Scribe Statement The provider has reviewed the documentation as recorded by the Michelle Martin Provider Attestation: All medical record entries made by the Michelle were at my direction and personally dictated by me. I have reviewed the chart and agree that the record accurately reflects my personal performance of the history, physical exam, medical decision making, and the department course for this patient. I have also personally directed, reviewed, and agree with the discharge instructions and disposition.
[2016-11-25] MEDS ORDERED: Sodium Chloride 0.9% 1,000 ML ONE (15:07)
[2016-11-25 15:26] LABS: BASO % 0.2 % (0.0-2.0); EOS % 0.9 % (0.0-4.0); HEMATOCRIT 49.5 % (35.0-51.0); LYMPH # 0.3 K/uL (1.0-4.3); LYMPH % 8.9 % (20.0-40.0); MEAN CELL VOLUME 86.4 fL (80.0-94.0); MEAN CORPUSCULAR HEMOGLOBIN 28.6 pg (27.0-31.0); MEAN CORPUSCULAR HGB CONC 33.1 g/dL (33.0-37.0); MEAN PLATELET VOLUME 8.5 fL (7.2-11.7); MONO # 0.5 K/uL (0.0-0.8); MONO % 16.1 % (0.0-10.0); NRBC % 0.1 % (0.0-2.0); PLATELET COUNT 178 K/uL (130-400); RED CELL DISTRIBUTION WIDTH 14.9 % (11.5-14.5); WHITE BLOOD COUNT 3.2 K/uL (4.8-10.8)
[2016-11-25 15:35] LABS: CHLORIDE 103 mmol/L (98-107)
[2016-11-25 15:36] LABS: POTASSIUM 4.4 mmol/L (3.6-5.2); SODIUM 141 mmol/L (132-148)
[2016-11-25 15:38] LABS: CARBON DIOXIDE 19 mmol/L (22-30); GFR AFRICAN-AMERICAN > 60
[2016-11-25 15:39] LABS: ALKALINE PHOSPHATASE 99 U/L (38-126); ALT/SGPT 29 U/L (21-72); AST/SGOT 24 U/L (17-59); BLOOD UREA NITROGEN 26 mg/dL (9-20); CALCIUM 9.1 mg/dl (8.6-10.4); GLUCOSE,RANDOM 127 mg/dL (75-110)
[2016-11-25 15:48] LABS: RBC URINE 3 /hpf (0-3); URINE BILIRUBIN NEGATIVE (NEGATIVE); URINE BLOOD NEGATIVE (NEGATIVE); URINE COLOR Amber (YELLOW); URINE GLUCOSE (UA) NORMAL (Normal); URINE KETONE 1+ mg/dL (NEGATIVE); URINE LEUKOCYTE ESTERASE NEG Leu/uL (Negative); URINE PROTEIN 1+ mg/dL (NEGATIVE); URINE UROBILINOGEN NORMAL mg/dL (0.2-1.0); WBC URINE 1 /hpf (0-5)
[2016-11-25 15:56] LABS: EOSINOPHIL 2 % (0-4); TOTAL CELLS COUNTED 100
[2016-11-25 15:57] LABS: NEUTROPHIL 62 % (50-75)
--- NOTE | 2016-11-25 16:59 | CP.PCM.HP ---
History of Present Illness - History of Present Illness History of Present Illness: CC: "Nausea and vomiting" Patient is an 81 year old male with PMHx DM, GERD, HTN, CKD, Prostate CA and Colorectal CA s/p resection with colostomy. Patient states that he began having watery diarrhea yesterday and that he vomited four times today. Patient states his last meal of solid food was on Tuesday. Patient states yesterday he was able to tolerate liquids and only had broth, 7Up, and Gatorade all day. Patient states that today he could not tolerate even liquids, and every time he drank something he vomited it back up. Patient also admits to feeling weak and dizzy earlier today, after vomiting. Patient denies hematemesis. Patient states colostomy output was profuse and denies bloody stool. Patient states he has had multiple similar presentations multiple times and that it usually resolves with bowel rest. Patient is currently refusing NG tube placement. 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 absent: Chills, Fever - EENT Eyes: absent: Blurred Vision - Cardiovascular Cardiovascular: absent: Chest Pain, Diaphoresis, Dyspnea - Respiratory Respiratory: absent: Cough, Dyspnea - Gastrointestinal Gastrointestinal: Diarrhea, Loose Stools, Nausea, Vomiting. absent: Hematemesis , Hematochezia - Genitourinary Genitourinary: Urinary Incontinence (since prostatectomy). absent: Difficulty Urinating, Dysuria - Musculoskeletal Musculoskeletal: absent: Back Pain - Integumentary Integumentary: absent: Rash - Neurological Neurological: absent: Confusion, Focal Weakness Past Patient History - Infectious Disease Hx of Infectious Diseases: None - Past Medical History & Family History Past Medical History?: Yes - Past Social History Smoking Status: Never Smoked - CARDIAC Hx Atrial Fibrillation: Yes (on eliquis) Hx Hypertension: Yes - PULMONARY Hx Respiratory Disorders: No - NEUROLOGICAL Hx Migraine: Yes - HEENT Hx HEENT Problems: No - RENAL Hx Chronic Kidney Disease: No - ENDOCRINE/METABOLIC Hx Diabetes Mellitus Type 2: Yes - HEMATOLOGICAL/ONCOLOGICAL Hx Blood Disorders: Yes Hx Cancer: Yes (rectal ca) - INTEGUMENTARY Hx Dermatological Problems: No - MUSCULOSKELETAL/RHEUMATOLOGICAL Hx Musculoskeletal Disorders: No Hx Falls: No - GASTROINTESTINAL Hx Gastrointestinal Disorders: Yes Hx Bowel Surgery: Yes (Colon resection) Hx Colostomy: Yes Hx Gastroesophageal Reflux: Yes Hx Nausea: Yes Hx Vomiting: Yes Other/Comment: previously has had small bowel obstructions - GENITOURINARY/GYNECOLOGICAL Hx Genitourinary Disorders: Yes Hx Prostate Problems: Yes (Prostatectomy) - PSYCHIATRIC Hx Substance Use: No - SURGICAL HISTORY Hx Surgeries: Yes Other/Comment: colostomy bag, prostectomy, Colon resection - ANESTHESIA Hx Anesthesia: Yes Hx Anesthesia Reactions: No Hx Malignant Hyperthermia: No Meds Allergies/Adverse Reactions: Allergies Allergy/AdvReac Type Severity Reaction Status Date / Time No Known Allergies Allergy Verified 11/25/16 14:33 Physical Exam - Constitutional Appears: Non-toxic, No Acute Distress - Head Exam Head Exam: ATRAUMATIC, NORMOCEPHALIC - Eye Exam Eye Exam: EOMI - ENT Exam ENT Exam: Mucous Membranes Dry - Respiratory Exam Respiratory Exam: Clear to Auscultation Bilateral, NORMAL BREATHING PATTERN. absent: Rales, Rhonchi, Wheezes, Respiratory Distress - Cardiovascular Exam Cardiovascular Exam: Irregular Rhythm, +S1, +S2 - GI/Abdominal Exam GI & Abdominal Exam: Hypoactive Bowel Sounds, Soft. absent: Distended, Tenderness Additional comments: scant liquid stool in colostomy bag - Extremities Exam Extremities exam: Positive for: normal inspection. Negative for: calf tenderness, pedal edema - Neurological Exam Neurological exam: Alert, Oriented x3 - Psychiatric Exam Psychiatric exam: Normal Affect, Normal Mood - Skin Skin Exam: Dry (poor skin turgor), Warm Results - Vital Signs Recent Vital Signs: Last Vital Signs Temp 98.3 F 11/25/16 14:34 Pulse 96 H 11/25/16 14:34 Resp 18 11/25/16 14:34 BP 129/85 11/25/16 14:34 Pulse Ox 94 L 11/25/16 16:08 - Labs Result Diagrams: 11/25/16 15:21 11/25/16 15:21 Assessment & Plan - Assessment and Plan (Free Text) Assessment: Small bowel obstruction multiple dilated loops small bowel seen on abdominal obstructive series maintain NPO status patient refused NG tube placement IVF: D5 1/2 NS @100cc/h Surgical consult, Dr Edmonds: help appreciated zofran 4mg IVP q6prn continue to monitor for bowel function stool occult blood negative bands 13 f/u stool culture, blood culture HTN hold home medication for now, will monitor and give IV medications if necessary Diabetes will monitor with accuchecks patient does not regularly take metformin A. fib will hold Eliquis for now will avoid chemical anticoagulation in case patient requires surgery Prophylactic measure protonix 40mg IV daily SCDs D/W Dr. Gutierrez
[2016-11-25] MEDS ORDERED: Dextrose 5%/0.45% NS 1,000 ML IV ONE (17:09)
[2016-11-25] MEDS: Dextrose 5%/0.45% NS 1,000 ML IV SCH (17:09)
--- NOTE | 2016-11-25 21:06 | CP.PCM.CON ---
History of Present Illness - History of Present Illness History of Present Illness: Surgery Consult note. Dr. Edmonds 81yo M with PMHx of DM, HTN, A.Fib, colorectal CA s/p total colectomy 10yrs ago , prostate CA s/p prostatectomy 20yrs ago, here for evaluation of nausea, vomiting and diarrhea. Patient reports that he has similar symptoms every 2-3 months and symptoms usually resolve with bowel rest. Yesterday, he had profuse liquid output from the ostomy (reports that the quality was more loose than his normal ostomy output), denies bloody or dark output. Last time he had solid food was 2 days ago. Yesterday, he was able to tolerate liquid intake. Today, he has not been able to tolerate liquids and has had greater than 4 green/wahl vomiting episodes, non-bloody. He also reports nausea throughout the day. He denies any abdominal pain. And states that he has only had one stool this morning and no ostomy output since then, Denies gas output in the ostomy today. Denies any recent illness, no sick contacts. Denies F/C. No CP/SOB. No headaches. No dizziness. No urinary changes. PMHx: DM, HTN, A.Fib, Colorectal CA, Prostate CA PSHx: Total colectomy with ostomy 10yrs ago. Prostatectomy 20yrs ago Family Hx: Denies Social Hx: Denies Tob, Denies ETOH, Denies illicit drugs NKDA Review of Systems - Review of Systems All systems: reviewed and no additional remarkable complaints except - Constitutional Constitutional: Anorexia. absent: Chills, Fever - Cardiovascular Cardiovascular: absent: Chest Pain, Dyspnea, Edema - Respiratory Respiratory: absent: Cough, Dyspnea, Wheezing - Gastrointestinal Gastrointestinal: Diarrhea, Nausea, Vomiting. absent: Abdominal Pain, Dyspepsia , Hematemesis, Hematochezia, Melena - Genitourinary Genitourinary: absent: Difficulty Urinating, Dysuria - Neurological Neurological: absent: Confusion, Dizziness, Headaches Past Patient History - Infectious Disease Hx of Infectious Diseases: None - Past Medical History & Family History Past Medical History?: Yes Past Family History: Reviewed and not pertinent - Past Social History Smoking Status: Unknown If Ever Smoked - CARDIAC Hx Atrial Fibrillation: Yes (on eliquis) Hx Hypertension: Yes - PULMONARY Hx Respiratory Disorders: No - NEUROLOGICAL Hx Migraine: Yes - HEENT Hx HEENT Problems: No - RENAL Hx Chronic Kidney Disease: No - ENDOCRINE/METABOLIC Hx Diabetes Mellitus Type 2: Yes - HEMATOLOGICAL/ONCOLOGICAL Hx Blood Disorders: Yes Hx Cancer: Yes (rectal ca) - INTEGUMENTARY Hx Dermatological Problems: No - MUSCULOSKELETAL/RHEUMATOLOGICAL Hx Falls: No - GASTROINTESTINAL Hx Gastrointestinal Disorders: Yes Hx Bowel Surgery: Yes (Colon resection) Hx Colostomy: Yes Hx Gastroesophageal Reflux: Yes Hx Nausea: Yes Hx Vomiting: Yes Other/Comment: previously has had small bowel obstructions - GENITOURINARY/GYNECOLOGICAL Hx Genitourinary Disorders: Yes Hx Prostate Problems: Yes (Prostatectomy) - PSYCHIATRIC Hx Substance Use: No - SURGICAL HISTORY Hx Surgeries: Yes Other/Comment: colostomy bag, prostectomy, Colon resection - ANESTHESIA Hx Anesthesia: Yes Hx Anesthesia Reactions: No Hx Malignant Hyperthermia: No Meds Allergies/Adverse Reactions: Allergies Allergy/AdvReac Type Severity Reaction Status Date / Time No Known Allergies Allergy Verified 11/25/16 14:33 - Medications Medications: Current Medications Dextrose/Sodium Chloride (Dextrose 5%/0.45% Ns 1000 Ml) 1,000 mls @ 100 mls/hr IV .Q10H [facility] Last Admin: 11/25/16 17:09 Dose: 100 mls/hr Ondansetron HCl (Zofran Inj) 4 mg IVP Q6H PRN PRN Reason: Nausea/Vomiting Pantoprazole Sodium (Protonix Inj) 40 mg IVP DAILY [facility] Pneumococcal Polyvalent Vaccine (Pneumovax 23 Vaccine) 0.5 ml IM .ONCE ONE Stop: 11/25/16 22:01 Physical Exam - Constitutional Appears: Well, Non-toxic, No Acute Distress - Head Exam Head Exam: ATRAUMATIC, NORMOCEPHALIC - Eye Exam Eye Exam: EOMI, Normal appearance, PERRL - ENT Exam ENT Exam: Mucous Membranes Moist - Neck Exam Neck exam: Positive for: Full Rom - Respiratory Exam Respiratory Exam: NORMAL BREATHING PATTERN. absent: Wheezes - Cardiovascular Exam Cardiovascular Exam: absent: JVD - GI/Abdominal Exam GI & Abdominal Exam: Soft. absent: Distended, Firm, Guarding Additional comments: Decreased bowel sounds. soft, nontender, non distended. Ostomy bag with minimal liquid yellow/brown output. Ostomy pink. midline abdominal scar. - Extremities Exam Extremities exam: Positive for: normal inspection. Negative for: calf tenderness, tenderness - Neurological Exam Neurological exam: Alert, Oriented x3 - Psychiatric Exam Psychiatric exam: Normal Affect, Normal Mood - Skin Skin Exam: Dry, Intact, Normal Color, Warm Results - Vital Signs Recent Vital Signs: Last Vital Signs Temp 98.7 F 11/25/16 19:20 Pulse 98 H 11/25/16 19:20 Resp 20 11/25/16 19:20 BP 124/86 11/25/16 19:20 Pulse Ox 95 11/25/16 19:20 - Labs Result Diagrams: 11/25/16 15:21 11/25/16 15:21 Assessment & Plan - Assessment and Plan (Free Text) Assessment: 81yo M with PMHx including Total Colectomy w/ ostomy here with SBO - Abd X-ray noted - NPO - NGT if patient begins vomiting - IVF - Zofran - Protonix - Continue conservative management - Surgery team will follow Discussed case with Dr. Grey Coffman PGY1 Surgery pager: [phone]
[2016-11-25] MEDS ORDERED: Aluminum Hydroxide/Magnesium Hydroxide Susp (30 mL) PO PRN (21:10)
[2016-11-25] MEDS ORDERED: Pneumococcal 23-Valent Vaccine IM ONE (22:00)
[2016-11-26] MEDS: Dextrose 5%/0.45% NS 1,000 ML IV SCH ×4 (03:00→22:31)
[2016-11-26 07:59] LABS: BASO % 0.4 % (0.0-2.0); EOS # 0.2 K/uL (0.0-0.7); EOS % 4.4 % (0.0-4.0); HEMATOCRIT 41.1 % (35.0-51.0); LYMPH # 0.9 K/uL (1.0-4.3); LYMPH % 25.8 % (20.0-40.0); MEAN CELL VOLUME 86.5 fL (80.0-94.0); MEAN CORPUSCULAR HGB CONC 33.6 g/dL (33.0-37.0); MEAN PLATELET VOLUME 8.5 fL (7.2-11.7); MONO # 0.8 K/uL (0.0-0.8); MONO % 23.1 % (0.0-10.0); PLATELET COUNT 152 K/uL (130-400); RED CELL DISTRIBUTION WIDTH 14.4 % (11.5-14.5); WHITE BLOOD COUNT 3.4 K/uL (4.8-10.8)
[2016-11-26 08:18] LABS: CHLORIDE 109 mmol/L (98-107)
[2016-11-26 08:19] LABS: POTASSIUM 3.8 mmol/L (3.6-5.2); SODIUM 143 mmol/L (132-148)
[2016-11-26 08:21] LABS: ALB/GLOB RATIO 1.1 (1.0-2.1); ALKALINE PHOSPHATASE 67 U/L (38-126); ALT/SGPT 22 U/L (21-72); AST/SGOT 16 U/L (17-59); BILIRUBIN,TOTAL 0.7 mg/dL (0.2-1.3); BLOOD UREA NITROGEN 22 mg/dL (9-20); CARBON DIOXIDE 26 mmol/L (22-30); GFR AFRICAN-AMERICAN > 60; GLUCOSE,RANDOM 121 mg/dL (75-110); PHOSPHOROUS 2.4 mg/dL (2.5-4.5); TOTAL PROTEIN 6.3 g/dL (6.3-8.3)
[2016-11-26 08:22] LABS: MAGNESIUM 1.8 mg/dL (1.6-2.3)
--- NOTE | 2016-11-26 08:29 | RAD ---
PROCEDURE: Radiographs of the chest and abdomen (obstructive series) HISTORY: vomiting/diarrhea, hx colostomy for CA COMPARISON: Comparison is made to the previous study dated 08/05/2016 TECHNIQUE: AP radiograph of the chest, with upright and supine radiographs of the abdomen. FINDINGS: CHEST: Lungs: Clear. Cardiovascular: Normal size heart. No pulmonary vascular congestion. Pleura: No pleural fluid. No pneumothorax. Other findings: None. ABDOMEN AND PELVIS: Bowel: Again is seen are moderately dilated bowel loops at the right and upper abdomen likely represent mildly dilated large bowel. Postsurgical changes are again seen in the pelvis. Air-fluid levels seen in the stomach. Otherwise no evidence of significant air-fluid levels in the bowel. Free air: None. Bones: Unremarkable. Other findings: None. IMPRESSION: Re- demonstration of mildly dilated bowel loops at the right and upper abdomen.
[2016-11-26 09:04] LABS: EOSINOPHIL 4 % (0-4); NEUTROPHIL 47 % (50-75); TOTAL CELLS COUNTED 100
[2016-11-26] MEDS ORDERED: Potassium Phosphate 15 MMOLE in Sodium Chloride 0.9% 250 ML IVPB ONE (11:00)
--- NOTE | 2016-11-26 14:00 | CP.PCM.PN ---
Subjective - Date & Time of Evaluation Date of Evaluation: 11/26/16 Time of Evaluation: 07:00 - Subjective Subjective: General Surgery- Dr. Edmonds Pt S&E at bedside this AM. No acute events overnight. Pt is having stool and flatus through ostomy. Denies current fevers chills, CP/SOB N/V. Objective - Vital Signs/Intake and Output Vital Signs (last 24 hours): Temp Pulse Resp BP Pulse Ox 98.2 F 84 20 120/76 95 11/26/16 08:16 11/26/16 08:16 11/26/16 08:16 11/26/16 08:16 11/26/16 08:16 Intake and Output: 11/26/16 11/26/16 06:59 18:59 Intake Total 1600 800 Output Total 200 Balance 1400 800 - Medications Medications: Current Medications Al Hydrox/Mg Hydrox/Simethicone (Maalox 30 Ml) 30 ml PO BID PRN PRN Reason: Indigestion / Heartburn Dextrose/Sodium Chloride (Dextrose 5%/0.45% Ns 1000 Ml) 1,000 mls @ 100 mls/hr IV .Q10H [facility] Last Admin: 11/26/16 06:55 Dose: 100 mls/hr Potassium Phosphate 15 mmole/ (Sodium Chloride) 255 mls @ 42.5 mls/hr IVPB ONCE ONE Stop: 11/26/16 16:59 Last Admin: 11/26/16 12:00 Dose: 42.5 mls/hr Ondansetron HCl (Zofran Inj) 4 mg IVP Q6H PRN PRN Reason: Nausea/Vomiting Pantoprazole Sodium (Protonix Inj) 40 mg IVP DAILY [facility] Last Admin: 11/26/16 10:05 Dose: 40 mg - Labs Labs: 11/26/16 07:40 11/26/16 07:40 - Constitutional Appears: No Acute Distress - Eye Exam Eye Exam: EOMI - ENT Exam ENT Exam: Mucous Membranes Moist - Respiratory Exam Respiratory Exam: NORMAL BREATHING PATTERN. absent: Accessory Muscle Use, Chest Wall Tenderness, Rhonchi, Wheezes - Cardiovascular Exam Cardiovascular Exam: +S1, +S2 - GI/Abdominal Exam GI & Abdominal Exam: Soft, Tenderness, Normal Bowel Sounds. absent: Distended, Firm, Rigid Additional comments: Ostomy [place] and patent with good output - Neurological Exam Neurological Exam: Alert, Awake, Oriented x3 - Psychiatric Exam Psychiatric exam: Normal Affect - Skin Skin Exam: Normal Color Assessment and Plan - Assessment and Plan (Free Text) Assessment: 81M with PMHx Total Colectomy w/ ostomy w/ with SBO Plan: - advance to [facility] - monitor bowel function - no acute surgical intervention at this time - further Recs per Dr. Grey Funk PGY1
--- NOTE | 2016-11-26 14:43 | CP.PCM.PN ---
<Polly John DonalArthur - Last Filed: 11/26/16 19:53> Subjective - Date & Time of Evaluation Date of Evaluation: 11/26/16 Time of Evaluation: 07:00 - Subjective Subjective: Patient was seen and examined in the AM at bedside. Per nurse there were not acute events overnight. Patient states he is feeling well. Patient states they changed his colostomy bag yesterday and his abdomen feels better. Patient denies any other complaints. Objective - Vital Signs/Intake and Output Vital Signs (last 24 hours): Temp Pulse Resp BP Pulse Ox 98.2 F 84 20 120/76 95 11/26/16 08:16 11/26/16 08:16 11/26/16 08:16 11/26/16 08:16 11/26/16 08:16 Intake and Output: 11/26/16 11/26/16 06:59 18:59 Intake Total 1600 800 Output Total 200 Balance 1400 800 - Medications Medications: Current Medications Al Hydrox/Mg Hydrox/Simethicone (Maalox 30 Ml) 30 ml PO BID PRN PRN Reason: Indigestion / Heartburn Dextrose/Sodium Chloride (Dextrose 5%/0.45% Ns 1000 Ml) 1,000 mls @ 100 mls/hr IV .Q10H [facility] Last Admin: 11/26/16 14:14 Dose: Not Given Potassium Phosphate 15 mmole/ (Sodium Chloride) 255 mls @ 42.5 mls/hr IVPB ONCE ONE Stop: 11/26/16 16:59 Last Admin: 11/26/16 12:00 Dose: 42.5 mls/hr Ondansetron HCl (Zofran Inj) 4 mg IVP Q6H PRN PRN Reason: Nausea/Vomiting Pantoprazole Sodium (Protonix Inj) 40 mg IVP DAILY [facility] Last Admin: 11/26/16 10:05 Dose: 40 mg - Labs Labs: 11/26/16 07:40 11/26/16 07:40 - Constitutional Appears: Well, No Acute Distress - Head Exam Head Exam: ATRAUMATIC, NORMAL INSPECTION, NORMOCEPHALIC - Eye Exam Eye Exam: EOMI, Normal appearance, PERRL Pupil Exam: NORMAL ACCOMODATION - ENT Exam ENT Exam: Mucous Membranes Moist - Respiratory Exam Respiratory Exam: Clear to Ausculation Bilateral, NORMAL BREATHING PATTERN - Cardiovascular Exam Cardiovascular Exam: REGULAR RHYTHM, +S1, +S2. absent: JVD - GI/Abdominal Exam GI & Abdominal Exam: Soft, Normal Bowel Sounds. absent: Tenderness Additional comments: colostomy bag - Extremities Exam Extremities Exam: Normal Inspection. absent: Pedal Edema, Tenderness - Neurological Exam Neurological Exam: Alert, Awake, Oriented x3 - Psychiatric Exam Psychiatric exam: Normal Affect, Normal Mood - Skin Skin Exam: Normal Color, Warm Assessment and Plan - Assessment and Plan (Free Text) Plan: Small bowel obstruction Surgical consult, Dr Edmonds: help appreciated On admission: multiple dilated loops small bowel seen on abdominal obstructive series Patient was started 11/26 on a Clear Liquid Diet Per surgery no surgical intervention needed at this time IVF: D5 1/2 NS @100cc/h zofran 4mg IVP q6prn continue to monitor for bowel function stool occult blood negative bands 13 f/u stool culture, blood culture HTN hold home medication for now, will monitor and give IV medications if necessary Diabetes will monitor with accuchecks patient does not regularly take metformin A. fib will hold Eliquis for now will avoid chemical anticoagulation in case patient requires surgery Prophylactic measure protonix 40mg IV daily SCDs D/W Dr. Brenda John-PGY-1 <Dinesh Gutierrez Jr. - Last Filed: 11/29/16 14:00> Objective - Vital Signs/Intake and Output Vital Signs (last 24 hours): Temp Pulse Resp BP Pulse Ox 98.6 F 95 H 20 126/82 95 11/28/16 15:30 11/28/16 15:30 11/28/16 15:30 11/28/16 15:30 11/28/16 15:30 - Labs Labs: 11/28/16 12:03 11/28/16 12:03 Attending/Attestation - Attestation I have personally seen and examined this patient.: Yes I have fully participated in the care of the patient.: Yes I have reviewed all pertinent clinical information, including history, physical exam and plan: Yes Notes (Text): 11/29/16 14:00 Agree with resident note and plan of care
[2016-11-27 06:28] VITALS: RESP 20
[2016-11-27] MEDS: Dextrose 5%/0.45% NS 1,000 ML IV SCH ×3 (09:40→22:00)
--- NOTE | 2016-11-27 10:49 | CP.PCM.PN ---
Subjective - Date & Time of Evaluation Date of Evaluation: 11/27/16 Time of Evaluation: 07:00 - Subjective Subjective: General Surgery- Dr. Edmonds Pt S&E at bedside this AM. two episodes of bilious vomiting after drinking orange juice overnight. States tolerated clear liquid diet yesterday. No current nausea or vomiting. Pt is having stool and flatus through ostomy. Denies current fevers chills, CP/SOB Objective - Vital Signs/Intake and Output Vital Signs (last 24 hours): Temp Pulse Resp BP Pulse Ox 98.6 F 93 H 20 147/89 99 11/27/16 06:00 11/27/16 06:00 11/27/16 06:00 11/27/16 00:00 11/27/16 00:00 Intake and Output: 11/27/16 11/27/16 06:59 18:59 Intake Total 815 Output Total 300 Balance 515 - Medications Medications: Current Medications Al Hydrox/Mg Hydrox/Simethicone (Maalox 30 Ml) 30 ml PO BID PRN PRN Reason: Indigestion / Heartburn Dextrose/Sodium Chloride (Dextrose 5%/0.45% Ns 1000 Ml) 1,000 mls @ 100 mls/hr IV .Q10H [facility] Last Admin: 11/27/16 09:40 Dose: Not Given Ondansetron HCl (Zofran Inj) 4 mg IVP Q6H PRN PRN Reason: Nausea/Vomiting Last Admin: 11/27/16 06:10 Dose: 4 mg Pantoprazole Sodium (Protonix Inj) 40 mg IVP DAILY [facility] Last Admin: 11/27/16 09:41 Dose: 40 mg - Labs Labs: 11/26/16 07:40 11/26/16 07:40 - Constitutional Appears: No Acute Distress - Eye Exam Eye Exam: EOMI - ENT Exam ENT Exam: Mucous Membranes Moist - Respiratory Exam Respiratory Exam: NORMAL BREATHING PATTERN. absent: Accessory Muscle Use, Rales , Rhonchi - Cardiovascular Exam Cardiovascular Exam: +S1, +S2 - GI/Abdominal Exam GI & Abdominal Exam: Soft. absent: Tenderness - Neurological Exam Neurological Exam: Alert, Awake, Oriented x3 - Psychiatric Exam Psychiatric exam: Normal Affect - Skin Skin Exam: Normal Color Assessment and Plan - Assessment and Plan (Free Text) Assessment: 81M with PMHx Total Colectomy w/ ostomy w/ with SBO Plan: - c/w CLD; advance diet as tolerated - monitor ostomy output - no acute surgical intervention at this time - further Recs per Dr. Grey Funk PGY1
[2016-11-27 13:28] LABS: BASO % 0.4 % (0.0-2.0); EOS # 0.1 K/uL (0.0-0.7); HEMATOCRIT 42.8 % (35.0-51.0); LYMPH # 0.6 K/uL (1.0-4.3); LYMPH % 15.8 % (20.0-40.0); MEAN CELL VOLUME 86.1 fL (80.0-94.0); MEAN CORPUSCULAR HEMOGLOBIN 28.3 pg (27.0-31.0); MEAN CORPUSCULAR HGB CONC 32.9 g/dL (33.0-37.0); MEAN PLATELET VOLUME 8.3 fL (7.2-11.7); MONO # 0.9 K/uL (0.0-0.8); MONO % 23.2 % (0.0-10.0); PLATELET COUNT 152 K/uL (130-400); RED CELL DISTRIBUTION WIDTH 14.7 % (11.5-14.5)
[2016-11-27 13:36] LABS: CHLORIDE 106 mmol/L (98-107)
[2016-11-27 13:37] LABS: POTASSIUM 3.6 mmol/L (3.6-5.2); SODIUM 140 mmol/L (132-148)
[2016-11-27 13:39] LABS: ALB/GLOB RATIO 1.1 (1.0-2.1); AST/SGOT 16 U/L (17-59); BILIRUBIN,TOTAL 0.7 mg/dL (0.2-1.3); CARBON DIOXIDE 25 mmol/L (22-30); GFR AFRICAN-AMERICAN > 60; TOTAL PROTEIN 6.6 g/dL (6.3-8.3)
[2016-11-27 13:40] LABS: ALKALINE PHOSPHATASE 70 U/L (38-126); ALT/SGPT 25 U/L (21-72); BLOOD UREA NITROGEN 12 mg/dL (9-20); CALCIUM 8.1 mg/dl (8.6-10.4); GLUCOSE,RANDOM 116 mg/dL (75-110); MAGNESIUM 1.6 mg/dL (1.6-2.3); PHOSPHOROUS 2.9 mg/dL (2.5-4.5)
[2016-11-27 14:34] LABS: EOSINOPHIL 1 % (0-4); NEUTROPHIL 48 % (50-75); TOTAL CELLS COUNTED 100
--- NOTE | 2016-11-27 15:19 | CP.PCM.PN ---
<BishnuPolly DonalArthur - Last Filed: 11/27/16 19:51> Subjective - Date & Time of Evaluation Date of Evaluation: 11/27/16 Time of Evaluation: 07:00 - Subjective Subjective: Medicine Progress Note: Patient was seen and examined in the AM at bedside. Per nurse there were not acute events overnight. Patient states he vomited this morning. Patient states they changed his colostomy bag again this morning. Patient states after he drank the chicken broth he started to feel abdominal pain. Patient denies any other complaints. Objective - Vital Signs/Intake and Output Vital Signs (last 24 hours): Temp Pulse Resp BP Pulse Ox 98.6 F 93 H 20 147/89 99 11/27/16 06:00 11/27/16 06:00 11/27/16 06:00 11/27/16 00:00 11/27/16 00:00 Intake and Output: 11/27/16 11/27/16 06:59 18:59 Intake Total 815 Output Total 300 Balance 515 - Medications Medications: Current Medications Al Hydrox/Mg Hydrox/Simethicone (Maalox 30 Ml) 30 ml PO BID PRN PRN Reason: Indigestion / Heartburn Dextrose/Sodium Chloride (Dextrose 5%/0.45% Ns 1000 Ml) 1,000 mls @ 100 mls/hr IV .Q10H [facility] Last Admin: 11/27/16 12:11 Dose: 100 mls/hr Ondansetron HCl (Zofran Inj) 4 mg IVP Q6H PRN PRN Reason: Nausea/Vomiting Last Admin: 11/27/16 15:04 Dose: 4 mg Pantoprazole Sodium (Protonix Inj) 40 mg IVP DAILY [facility] Last Admin: 11/27/16 09:41 Dose: 40 mg - Labs Labs: 11/27/16 13:21 11/27/16 13:21 - Constitutional Appears: No Acute Distress - Head Exam Head Exam: ATRAUMATIC, NORMAL INSPECTION, NORMOCEPHALIC - Eye Exam Eye Exam: EOMI, Normal appearance, PERRL Pupil Exam: NORMAL ACCOMODATION - ENT Exam ENT Exam: Mucous Membranes Moist - Respiratory Exam Respiratory Exam: Clear to Ausculation Bilateral, NORMAL BREATHING PATTERN - Cardiovascular Exam Cardiovascular Exam: REGULAR RHYTHM, RRR, +S1, +S2 - GI/Abdominal Exam GI & Abdominal Exam: Soft, Tenderness, Normal Bowel Sounds Additional comments: colostomy bag - Extremities Exam Extremities Exam: Normal Inspection. absent: Pedal Edema - Neurological Exam Neurological Exam: Alert, Awake, Oriented x3 - Psychiatric Exam Psychiatric exam: Anxious, Normal Affect, Normal Mood - Skin Skin Exam: Normal Color, Warm Assessment and Plan - Assessment and Plan (Free Text) Plan: Small bowel obstruction Surgical consult, Dr Edmonds: help appreciated On admission: multiple dilated loops small bowel seen on abdominal obstructive series Patient was started 11/26 on a Clear Liquid Diet Per surgery no surgical intervention needed at this time IVF: D5 1/ NS @100cc/h zofran 4mg IVP q6prn continue to monitor for bowel function stool occult blood negative bands 13 stool culture: no salmonella, shiegella, or campylobacter isolated f/u blood culture f/u doppler of inferior and superior mesenteric artery HTN hold home medication for now, will monitor and give IV medications if necessary Diabetes will monitor with accuchecks patient does not regularly take metformin A. fib will hold Eliquis for now will avoid chemical anticoagulation in case patient requires surgery Prophylactic measure protonix 40mg IV daily SCDs D/W Dr. Brenda John-PGY-1 <Dinesh Gutierrez Jr. - Last Filed: 11/29/16 14:08> Objective - Vital Signs/Intake and Output Vital Signs (last 24 hours): Temp Pulse Resp BP Pulse Ox 98.6 F 95 H 20 126/82 95 11/28/16 15:30 11/28/16 15:30 11/28/16 15:30 11/28/16 15:30 11/28/16 15:30 - Labs Labs: 11/28/16 12:03 11/28/16 12:03 Attending/Attestation - Attestation I have personally seen and examined this patient.: Yes I have fully participated in the care of the patient.: Yes I have reviewed all pertinent clinical information, including history, physical exam and plan: Yes Notes (Text): 11/29/16 14:08 Agree with resident note and plan of care
[2016-11-27] MEDS: Potassium Ch 20mEq in D5-1/2NS 1,000 ML IV SCH (22:43)
[2016-11-28 01:37] VITALS: O2SAT 95
--- NOTE | 2016-11-28 07:25 | CP.PCM.PN ---
Objective - Vital Signs/Intake and Output Vital Signs (last 24 hours): Temp Pulse Resp BP Pulse Ox 98.2 F 91 H 20 115/75 95 11/28/16 00:00 11/28/16 00:00 11/28/16 00:00 11/28/16 00:00 11/28/16 00:00 - Medications Medications: Current Medications Al Hydrox/Mg Hydrox/Simethicone (Maalox 30 Ml) 30 ml PO BID PRN PRN Reason: Indigestion / Heartburn Potassium Chloride/Dextrose/Sod Cl (Potassium Chl 20 Meq In D5-1/2ns) 1,000 mls @ 100 mls/hr IV .Q10H [facility] Last Admin: 11/27/16 22:43 Dose: 100 mls/hr Ondansetron HCl (Zofran Inj) 4 mg IVP Q6H PRN PRN Reason: Nausea/Vomiting Last Admin: 11/27/16 15:04 Dose: 4 mg Pantoprazole Sodium (Protonix Inj) 40 mg IVP DAILY [facility] Last Admin: 11/27/16 09:41 Dose: 40 mg - Labs Labs: 11/27/16 13:21 11/27/16 13:21
--- NOTE | 2016-11-28 07:50 | CP.PCM.PN ---
Subjective - Date & Time of Evaluation Date of Evaluation: 11/28/16 Time of Evaluation: 07:47 - Subjective Subjective: General Surgery: Dr Edmonds Pt S&E. NAEO. Pt reports he has had two large stool movements into this ostomy overnight. Tolerating CLD. Feels much less distended and he is hungry. Has been OOb and ambulating. Objective - Vital Signs/Intake and Output Vital Signs (last 24 hours): Temp Pulse Resp BP Pulse Ox 98.2 F 91 H 20 115/75 95 11/28/16 00:00 11/28/16 00:00 11/28/16 00:00 11/28/16 00:00 11/28/16 00:00 - Medications Medications: Current Medications Al Hydrox/Mg Hydrox/Simethicone (Maalox 30 Ml) 30 ml PO BID PRN PRN Reason: Indigestion / Heartburn Potassium Chloride/Dextrose/Sod Cl (Potassium Chl 20 Meq In D5-1/2ns) 1,000 mls @ 100 mls/hr IV .Q10H [facility] Last Admin: 11/27/16 22:43 Dose: 100 mls/hr Ondansetron HCl (Zofran Inj) 4 mg IVP Q6H PRN PRN Reason: Nausea/Vomiting Last Admin: 11/27/16 15:04 Dose: 4 mg Pantoprazole Sodium (Protonix Inj) 40 mg IVP DAILY [facility] Last Admin: 11/27/16 09:41 Dose: 40 mg - Labs Labs: 11/27/16 13:21 11/27/16 13:21 - Constitutional Appears: Non-toxic, No Acute Distress - Head Exam Head Exam: NORMOCEPHALIC - ENT Exam ENT Exam: Mucous Membranes Moist - Respiratory Exam Respiratory Exam: absent: Accessory Muscle Use, Respiratory Distress - GI/Abdominal Exam GI & Abdominal Exam: Soft, Normal Bowel Sounds. absent: Distended, Firm, Tenderness Additional comments: ostomy with brown stool output - Neurological Exam Neurological Exam: Alert, Awake, Oriented x3 - Psychiatric Exam Psychiatric exam: Normal Affect, Normal Mood Assessment and Plan - Assessment and Plan (Free Text) Assessment: 81M w/ recurrent SBO; resolving Plan: adv to regular diet pt clear for d/c from surgical standpoint if tolerates regular diet will d/w Dr Grey Arce, PGY3
[2016-11-28] MEDS: Potassium Ch 20mEq in D5-1/2NS 1,000 ML IV SCH (08:00)
--- NOTE | 2016-11-28 09:29 | RAD ---
HISTORY: SBO comparison COMPARISON: Abdomen obstructive series 10480. FINDINGS: BOWEL: Increased dilatation small-bowel loops in the right upper quadrant are identified although gas is identified within variable large-bowel loops increased in the interval. Air-fluid levels are seen within large and small bowel loops. Overall pattern may reflect in intermittent or partial distal small bowel obstruction rather than complete obstruction at this time. No free intraperitoneal gas is demonstrated in surgical is identified in the inferior abdomen once again. BONES: Multilevel lumbar spondylosis. OTHER FINDINGS: None. IMPRESSION: Partial or intermittent distal small bowel obstruction appears to have developed with ileus not favored. No free intraperitoneal gas. Continued clinical and radiographic monitor advised. CT is available if clinically warranted.
[2016-11-28 12:06] LABS: BASO % 0.4 % (0.0-2.0); EOS # 0.1 K/uL (0.0-0.7); EOS % 3.9 % (0.0-4.0); HEMATOCRIT 42.3 % (35.0-51.0); LYMPH # 0.7 K/uL (1.0-4.3); LYMPH % 22.4 % (20.0-40.0); MEAN CELL VOLUME 86.4 fL (80.0-94.0); MEAN CORPUSCULAR HEMOGLOBIN 28.7 pg (27.0-31.0); MEAN CORPUSCULAR HGB CONC 33.2 g/dL (33.0-37.0); MEAN PLATELET VOLUME 8.7 fL (7.2-11.7); MONO # 0.6 K/uL (0.0-0.8); MONO % 18.2 % (0.0-10.0); NRBC % 0.1 % (0.0-2.0); RED CELL DISTRIBUTION WIDTH 14.2 % (11.5-14.5); WHITE BLOOD COUNT 3.3 K/uL (4.8-10.8)
[2016-11-28 12:21] LABS: ALB/GLOB RATIO 0.9 (1.0-2.1); ALKALINE PHOSPHATASE 73 U/L (38-126); ALT/SGPT 27 U/L (21-72); AST/SGOT 18 U/L (17-59); BILIRUBIN,TOTAL 0.8 mg/dL (0.2-1.3); BLOOD UREA NITROGEN 10 mg/dL (9-20); CALCIUM 8.5 mg/dl (8.6-10.4); CARBON DIOXIDE 25 mmol/L (22-30); CHLORIDE 104 mmol/L (98-107); GFR AFRICAN-AMERICAN > 60; GLUCOSE,RANDOM 88 mg/dL (75-110); MAGNESIUM 1.7 mg/dL (1.6-2.3); PHOSPHOROUS 2.3 mg/dL (2.5-4.5); POTASSIUM 3.8 mmol/L (3.6-5.2); SODIUM 140 mmol/L (132-148); TOTAL PROTEIN 6.4 g/dL (6.3-8.3)
--- NOTE | 2016-11-28 14:05 | CP.PCM.DIS ---
Provider - Provider Date of Admission: 11/25/16 16:09 Attending physician: Dinesh Gutierrez Jr, MD Time Spent in preparation of Discharge (in minutes): 40 Hospital Course - Lab Results Lab Results: Most Recent Lab Values WBC 3.3 K/uL (4.8-10.8) L 11/28/16 12:03 RBC 4.90 Mil/uL (4.40-5.90) 11/28/16 12:03 Hgb 14.0 g/dL (12.0-18.0) 11/28/16 12:03 Hct 42.3 % (35.0-51.0) 11/28/16 12:03 MCV 86.4 fL (80.0-94.0) 11/28/16 12:03 MCH 28.7 pg (27.0-31.0) 11/28/16 12:03 MCHC 33.2 g/dL (33.0-37.0) 11/28/16 12:03 RDW 14.2 % (11.5-14.5) 11/28/16 12:03 Plt Count 151 K/uL (130-400) 11/28/16 12:03 MPV 8.7 fL (7.2-11.7) 11/28/16 12:03 Neut % (Auto) 55.1 % (50.0-75.0) 11/28/16 12:03 Lymph % (Auto) 22.4 % (20.0-40.0) 11/28/16 12:03 [place] % (Auto) 18.2 % (0.0-10.0) H 11/28/16 12:03 Eos % (Auto) 3.9 % (0.0-4.0) 11/28/16 12:03 Baso % (Auto) 0.4 % (0.0-2.0) 11/28/16 12:03 Neut # 1.8 K/uL (1.8-7.0) 11/28/16 12:03 Lymph # 0.7 K/uL (1.0-4.3) L 11/28/16 12:03 [place] # 0.6 K/uL (0.0-0.8) 11/28/16 12:03 Eos # 0.1 K/uL (0.0-0.7) 11/28/16 12:03 Baso # 0.0 K/uL (0.0-0.2) 11/28/16 12:03 Neutrophils % (Manual) 48 % (50-75) L 11/27/16 13:21 Band Neutrophils % 5 % (0-2) H 11/27/16 13:21 Lymphocytes % (Manual) 22 % (20-40) 11/27/16 13:21 Monocytes % (Manual) 24 % (0-10) H 11/27/16 13:21 Eosinophils % (Manual) 1 % (0-4) 11/27/16 13:21 Platelet Estimate Normal (NORMAL) 11/27/16 13:21 RBC Morphology Normal 11/26/16 07:40 Anisocytosis (manual) Slight 11/27/16 13:21 Sodium 140 mmol/L (132-148) 11/28/16 12:03 Potassium 3.8 mmol/L (3.6-5.2) 11/28/16 12:03 Chloride 104 mmol/L (98-107) 11/28/16 12:03 Carbon Dioxide 25 mmol/L (22-30) 11/28/16 12:03 Anion Gap 14 (10-20) 11/28/16 12:03 BUN 10 mg/dL (9-20) 11/28/16 12:03 Creatinine 1.2 MG/DL (0.8-1.5) 11/28/16 12:03 Est GFR ( Amer) > 60 11/28/16 12:03 Est GFR (Non-Af Amer) 58 11/28/16 12:03 POC Glucose (mg/dL) 153 mg/dL (65-110) H 11/28/16 11:43 Random Glucose 88 mg/dL (75-110) 11/28/16 12:03 Calcium 8.5 mg/dl (8.6-10.4) L 11/28/16 12:03 Phosphorus 2.3 mg/dL (2.5-4.5) L 11/28/16 12:03 Magnesium 1.7 mg/dL (1.6-2.3) 11/28/16 12:03 Total Bilirubin 0.8 mg/dL (0.2-1.3) 11/28/16 12:03 AST 18 U/L (17-59) 11/28/16 12:03 ALT 27 U/L (21-72) 11/28/16 12:03 Alkaline Phosphatase 73 U/L (38-126) 11/28/16 12:03 Total Protein 6.4 g/dL (6.3-8.3) 11/28/16 12:03 Albumin 3.1 g/dL (3.5-5.0) L 11/28/16 12:03 Globulin 3.3 gm/dL (2.2-3.9) 11/28/16 12:03 Albumin/Globulin Ratio 0.9 (1.0-2.1) L 11/28/16 12:03 Lipase 34 U/L (23-300) 11/25/16 15:21 Urine Color Day[place] (YELLOW) 11/25/16 15:34 Urine Clarity Clear (Clear) 11/25/16 15:34 Urine pH 5.0 (5.0-8.0) 11/25/16 15:34 Ur Specific [place] 1.028 (1.003-1.030) 11/25/16 15:34 Urine Protein 1+ mg/dL (NEGATIVE) H 11/25/16 15:34 Urine Glucose (UA) Normal mg/dL (Normal) 11/25/16 15:34 Urine Ketones 1+ mg/dL (NEGATIVE) H 11/25/16 15:34 Urine Blood Negative (NEGATIVE) 11/25/16 15:34 Urine Nitrate Negative (NEGATIVE) 11/25/16 15:34 Urine Bilirubin Negative (NEGATIVE) 11/25/16 15:34 Urine Urobilinogen Normal mg/dL (0.2-1.0) 11/25/16 15:34 Ur Leukocyte Esterase Neg [place]/uL (Negative) 11/25/16 15:34 Urine WBC (Auto) 1 /hpf (0-5) 11/25/16 15:34 Urine RBC (Auto) 3 /hpf (0-3) 11/25/16 15:34 Ur Squamous Epith Cells < 1 /hpf (0-5) 11/25/16 15:34 Stool Occult Blood Negative (NEGATIVE) 11/25/16 15:56 - Hospital Course Hospital Course: CC: "Nausea and vomiting" Patient is an 81 year old male with PMHx DM, GERD, HTN, CKD, Prostate CA and Colorectal CA s/p resection with colostomy. Patient states that he began having watery diarrhea yesterday and that he vomited four times today. Patient states his last meal of solid food was on Tuesday. Patient states yesterday he was able to tolerate liquids and only had broth, 7Up, and Gatorade all day. Patient states that today he could not tolerate even liquids, and every time he drank something he vomited it back up. Patient also admits to feeling weak and dizzy earlier today, after vomiting. Patient denies hematemesis. Patient states colostomy output was profuse and denies bloody stool. Patient states he has had multiple similar presentations multiple times and that it usually resolves with bowel rest. Patient is currently refusing NG tube placement. 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 Patient was started 11/26 on a Clear Liquid Diet. Stool occult blood and culture negative. X-ray of the abdomen showed partial or intermittent distal small bowel obstruction appears to have developed with ileus not favored. No free intraperitoneal gas. Patient was advanced to regular diet. Surgery Dr. Edmonds was consulted and stated no surgical intervention was needed. Patient stable for discharge per Dr. Gutierrez and Dr. Edmonds. Patient to follow up with Dr. Gutierrez in one week. Patient will complete the doppler study done as an outpatient. Patient to resume all home medications. Patient to return to the emergency room if symptoms return or worsen. This is a brief summary of events. For a complete course, refer to the medical record. Discharge Exam - Head Exam Head Exam: ATRAUMATIC, NORMAL INSPECTION, NORMOCEPHALIC - Eye Exam Eye Exam: EOMI, Normal appearance, PERRL Pupil Exam: NORMAL ACCOMODATION, PERRL - ENT Exam ENT Exam: Mucous Membranes Moist - Respiratory Exam Respiratory Exam: Clear to PA & Lateral, NORMAL BREATHING PATTERN - Cardiovascular Exam Cardiovascular Exam: REGULAR RHYTHM, RRR, +S1, +S2 - GI/Abdominal Exam GI & Abdominal Exam: Normal Bowel Sounds, Soft. absent: Tenderness Additional comments: Colostomy bag - Extremities Exam Extremities exam: normal inspection - Neurological Exam Neurological exam: Alert, Oriented x3 - Psychiatric Exam Psychiatric exam: Normal Affect, Normal Mood - Skin Skin Exam: Normal Color, Warm Discharge Plan - Follow Up Plan Condition: STABLE Disposition: HOME/ ROUTINE Instructions: Hypertension (DC), Hypertension (GEN)
[2016-11-28 15:31] VITALS: BP 126/82; PULSE 95; TEMP 98.6
== END 2016-11-28 15:35 | disposition home or self-care (01) | DRG 390 ==
LOC: C.ER 14:16 → C.9E 16:09 → C.3T 18:25
PROVIDERS: ADMIT Internal Medicine; ATTEND Internal Medicine
DX: K56.2 Volvulus (principal); E11.22 Type 2 diabetes mellitus with diabetic chronic kidney disease; I48.91 Unspecified atrial fibrillation; K21.9 Gastro-esophageal reflux disease without esophagitis; I12.9 Hypertensive chronic kidney disease with stage 1 through stage 4 chronic kidney disease, or unspecified chronic kidney disease; N18.9 Chronic kidney disease, unspecified; G43.909 Migraine, unspecified, not intractable, without status migrainosus; Z85.038 Personal history of other malignant neoplasm of large intestine; Z93.3 Colostomy status; Z79.01 Long term (current) use of anticoagulants

== ENCOUNTER 2017-02-14 00:39 | Inpatient (IN) | payer MEDICARE, BC ==
[2017-02-14 00:39] VITALS: BMI 28.3
[2017-02-14 00:50] VITALS: RESP 20
[2017-02-14] MEDS ORDERED: Iohexol 240 (50 ml) PO STA (01:19)
[2017-02-14] MEDS ORDERED: Iohexol 240 (50 ml) ONE (01:35)
[2017-02-14 01:39] LABS: BASO % 0.1 % (0.0-2.0); EOS # 0.1 K/uL (0.0-0.7); HEMATOCRIT 48.1 % (35.0-51.0); LYMPH # 1.3 K/uL (1.0-4.3); LYMPH % 26.7 % (20.0-40.0); MEAN CELL VOLUME 85.5 fL (80.0-94.0); MEAN CORPUSCULAR HEMOGLOBIN 28.6 pg (27.0-31.0); MEAN CORPUSCULAR HGB CONC 33.5 g/dL (33.0-37.0); MEAN PLATELET VOLUME 8.7 fL (7.2-11.7); MONO # 0.9 K/uL (0.0-0.8); NRBC % 0.2 % (0.0-2.0)
[2017-02-14 02:16] LABS: BILIRUBIN,TOTAL 0.9 mg/dL (0.2-1.3); CALCIUM 7.7 mg/dl (8.6-10.4); POTASSIUM 3.6 mmol/L (3.6-5.2); TOTAL PROTEIN 8.2 g/dL (6.3-8.3)
--- NOTE | 2017-02-14 02:35 | CP.PCM.HP ---
History of Present Illness - History of Present Illness History of Present Illness: CC: "diarrhea and vomiting" Patient is an 81 year old male with PMHx DM, GERD, HTN, CKD, Prostate CA and Colorectal CA s/p resection with colostomy. Patient started having diarrhea on Tuesday about 5 times per day. Patient had no appetite over the weekend. Patient had one episode of vomiting around midnight. Both bowel movements and vomiting have been nonbloody. Patient has had multiple similar admissions and it usually resolved with bowel rest. PAtient currently refuses NG tube placement. Patient has some nausea, but currently states he has no abdominal pain. Patient denies shortness of breath or chest pain. 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 absent: Abdominal Pain - Genitourinary Genitourinary: absent: Difficulty Urinating - Integumentary Integumentary: absent: Rash Past Patient History - Infectious Disease Hx of Infectious Diseases: None - Past Medical History & Family History Past Medical History?: Yes - Past Social History Smoking Status: Never Smoked - CARDIAC Hx Cardiac Disorders: Yes Hx Cardia Arrhythmia: Yes (afib) Hx Hypertension: Yes - PULMONARY Hx Respiratory Disorders: No - NEUROLOGICAL Hx Migraine: Yes - HEENT Hx HEENT Problems: No - RENAL Hx Chronic Kidney Disease: No - ENDOCRINE/METABOLIC Hx Diabetes Mellitus Type 2: Yes - HEMATOLOGICAL/ONCOLOGICAL Hx Blood Disorders: Yes Hx Cancer: Yes (rectal ca) - INTEGUMENTARY Hx Dermatological Problems: No - MUSCULOSKELETAL/RHEUMATOLOGICAL Hx Falls: No - GASTROINTESTINAL Hx Gastrointestinal Disorders: Yes Hx Bowel Surgery: Yes (Colon resection) Hx Colostomy: Yes (2017) Hx Nausea: Yes Other/Comment: previously has had small bowel obstructions - GENITOURINARY/GYNECOLOGICAL Hx Genitourinary Disorders: Yes Hx Prostate Problems: Yes - PSYCHIATRIC Hx Psychophysiologic Disorder: No Hx Substance Use: No - SURGICAL HISTORY Hx Surgeries: Yes Other/Comment: colostomy bag, prostectomy, Colon resection - ANESTHESIA Hx Anesthesia: Yes Hx Anesthesia Reactions: No Hx Malignant Hyperthermia: No Meds Allergies/Adverse Reactions: Allergies Allergy/AdvReac Type Severity Reaction Status Date / Time No Known Allergies Allergy Verified 02/14/17 00:53 Physical Exam - Constitutional Appears: Well, Non-toxic, No Acute Distress - Head Exam Head Exam: ATRAUMATIC, NORMAL INSPECTION - Eye Exam Eye Exam: EOMI, Normal appearance Pupil Exam: PERRL - ENT Exam ENT Exam: Mucous Membranes Dry - Respiratory Exam Respiratory Exam: Clear to Auscultation Bilateral, NORMAL BREATHING PATTERN. absent: Rales, Rhonchi, Wheezes, Respiratory Distress, Stridor - Cardiovascular Exam Cardiovascular Exam: REGULAR RHYTHM, RRR, +S1, +S2 - GI/Abdominal Exam GI & Abdominal Exam: Hyperactive Bowel Sounds, Soft - Extremities Exam Extremities exam: Positive for: normal inspection. Negative for: pedal edema - Neurological Exam Neurological exam: Alert, Oriented x3 - Psychiatric Exam Psychiatric exam: Normal Affect, Normal Mood - Skin Skin Exam: Intact, Normal Color, Warm Results - Vital Signs Recent Vital Signs: Last Vital Signs Temp 97.7 F 02/14/17 00:47 Pulse 99 H 02/14/17 00:47 Resp 20 02/14/17 00:47 BP 113/70 02/14/17 00:47 Pulse Ox 99 02/14/17 00:47 - Labs Result Diagrams: 02/14/17 01:35 02/14/17 01:35 Labs: Laboratory Results - last 24 hr 02/14/17 02/14/17 01:35 01:35 WBC 5.0 D RBC 5.62 Hgb 16.1 D Hct 48.1 MCV 85.5 MCH 28.6 MCHC 33.5 RDW 15.0 H Plt Count 197 MPV 8.7 Neut % (Auto) 52.2 Lymph % (Auto) 26.7 [place] % (Auto) 19.0 H Eos % (Auto) 2.0 Baso % (Auto) 0.1 Neut # 2.6 Lymph # 1.3 [place] # 0.9 H Eos # 0.1 Baso # 0.0 Sodium 136 Potassium 3.6 Chloride 101 Carbon Dioxide 20 L Anion Gap 19 BUN 29 H Creatinine 1.5 Est GFR ( Amer) 54 Est GFR (Non-Af Amer) 45 Random Glucose 117 H Calcium 7.7 L Total Bilirubin 0.9 AST 20 ALT 31 Alkaline Phosphatase 101 Total Protein 8.2 Albumin 4.1 Globulin 4.1 H Albumin/Globulin Ratio 1.0 Lipase 44 Assessment & Plan - Assessment and Plan (Free Text) Assessment: Small bowel obstruction multiple dilated loops small bowel seen on abdominal obstructive series maintain NPO patient refused NG tube placement D5 1/2 NS @100cc/h zofran 4mg IVP q6h prn Surgical consult, Dr. Edmonds, help appreciated continue to monitor for bowel function f/u stool culture f/u abdominal obstructive series f/u Abd/pelvis CT HTN hold home medication for now, will monitor and give IV medications if necessary Diabetes will monitor with accuchecks q6h patient does not regularly take metformin A. fib will hold Eliquis for now Prophylactic measure GI: protonix 40mg IV daily DVT: SCDs, will avoid chemical anticoagulation in case patient requires surgery D/W Dr. Gutierrez
[2017-02-14] MEDS: Dextrose 5%/0.45% NS 1,000 ML IV SCH ×4 (03:05→22:22)
--- NOTE | 2017-02-14 03:39 | C.PDOC ---
History Of Present Illness 81 y/o male presents to ER with several episodes of diarrhea since yesterday with intermittent episodes of hard stools. Pt states few hours [employer] he experienced some abdominal discomfort with one episode of vomiting, pt reports some relief of the pain after vomiting. Pt has been seen multiple times before for SBO. Denies vomiting blood, bloody stools or fever Time Seen by Provider: 02/14/17 01:02 Chief Complaint (Nursing): Abdominal Pain History Per: Patient, Family (spouse) Onset/Duration Of Symptoms: Days (2) Current Symptoms Are (Timing): Better Associated Symptoms: Vomiting (x 1), Diarrhea (several). denies: Fever, Nausea , Back Pain, Chest Pain, Urinary Symptoms Recent travel outside of the [place]: No Past Medical History Vital Signs: Last Vital Signs Temp 97.7 F 02/14/17 00:47 Pulse 99 H 02/14/17 00:47 Resp 20 02/14/17 00:47 BP 113/70 02/14/17 00:47 Pulse Ox 99 02/14/17 03:46 - Medical History PMH: Atrial Fibrillation (on eliquis), Cardia Arrhythmia (afib), Diabetes, HTN, Malignancy (colon CA, rectal CA), Migraine Denies: Chronic Kidney Disease - [employer] Procedures INSERT GASTRIC TUBE NEC (06/14/14) OTH INCIDENT APPENDECTOMY (08/08/12) OTH LYSIS-PERITONEAL ADHES (08/08/12) PARENTERAL INFUSION OF CONCENTRATED NUT. SUBSTANCE (09/27/13) PART SM BOWEL RESECT NEC (08/08/12) VACCINATION NEC (09/27/13) VENOUS CATHETERIZATION NEC (09/27/13) Family History: States: Unknown Family Hx - Social History Hx Tobacco Use: No Hx Alcohol Use: No Hx Substance Use: No - Immunization History Hx Tetanus Toxoid Vaccination: No Hx Influenza Vaccination: Yes Hx Pneumococcal Vaccination: Yes Review Of Systems Constitutional: Negative for: Fever Gastrointestinal: Positive for: Vomiting, Abdominal Pain, Diarrhea. Negative for: Nausea Genitourinary: Negative for: Dysuria, Hematuria Physical Exam - Physical Exam Appears: Well, Non-toxic, No Acute Distress Eye(s): bilateral: Normal Inspection Chest: Symmetrical Cardiovascular: Rhythm Regular Respiratory: Normal Breath Sounds, No Rales Gastrointestinal/Abdominal: Bowel Sounds (increased ), Soft, No Tenderness, No Distention, No Guarding, No Rebound, Other ((+) colostomy to Lt lower abdomen) Back: No CVA Tenderness Neurological/Psych: Oriented x3 ED Course And Treatment - Laboratory Results Result Diagrams: 02/14/17 01:35 02/14/17 01:35 O2 Sat by Pulse Oximetry: 99 Pulse Ox Interpretation: Normal - Other Rad Obstructive series Interpretation: Multiple dilated loops of bowel Progress Note: Labs and Obstructive series ordered. Pt with multiple dilated loops of bowel on XR, otherwise stable , no vomiting, denies abdominal pain at this time. Case d/w Dr Gutierrez - pt's PCP who advised to admit pt and consult with Dr Edmonds for general surgery consult. Results and plan was d/w pt who agreed with plan Disposition - Disposition Disposition: HOSPITALIZED Disposition Time: 23:00 Condition: STABLE Forms: [facility] (Niuean) - Clinical Impression Clinical Impression: Small bowel obstruction
--- NOTE | 2017-02-14 05:36 | CP.PCM.CON ---
History of Present Illness - History of Present Illness History of Present Illness: General Surgery Consult Note for Dr. Gutierrez Reason for Consult: SBO 81 M with PMH of DM, GERD, HTN, CKD, Prostate CA and Colorectal CA s/p resection with colostomy present for nausea/vomiting and abdominal pain. Patient has history of multiple SBO. Patient had one episode of vomiting around midnight. he states that vomiting was very dark color. Patient is able to tell when he is becoming obstructive. Pain resolved after vomiting. He currently denies any pain. Patient also had multiple episodes of diarrhea on Tuesday. He reports associated anorexia. Patient does not want NG tube. He admits to feeling better than yesterday. Admits to GERD. Denies fever/chills,cp, shortness of breath, palpitations, constipation. PMD Dr. 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 Review of Systems - Review of Systems All systems: reviewed and no additional remarkable complaints except (GERD, abdominal pain, nausea/vomiting, diarrhea) Past Patient History - Infectious Disease Hx of Infectious Diseases: None - Past Medical History & Family History Past Medical History?: Yes - Past Social History Smoking Status: Never Smoked - CARDIAC Hx Atrial Fibrillation: Yes (on eliquis) Hx Cardia Arrhythmia: Yes (afib) Hx Hypertension: Yes - PULMONARY Hx Respiratory Disorders: No - NEUROLOGICAL Hx Migraine: Yes - HEENT Hx HEENT Problems: No - RENAL Hx Chronic Kidney Disease: No - ENDOCRINE/METABOLIC Hx Diabetes Mellitus Type 2: Yes - HEMATOLOGICAL/ONCOLOGICAL Hx Blood Disorders: Yes Hx Cancer: Yes (rectal ca) - INTEGUMENTARY Hx Dermatological Problems: No - MUSCULOSKELETAL/RHEUMATOLOGICAL Hx Falls: No - GASTROINTESTINAL Hx Gastrointestinal Disorders: Yes Hx Bowel Surgery: Yes (Colon resection) Hx Colostomy: Yes (2017) Hx Nausea: Yes Other/Comment: previously has had small bowel obstructions - GENITOURINARY/GYNECOLOGICAL Hx Genitourinary Disorders: Yes Hx Prostate Problems: Yes - PSYCHIATRIC Hx Substance Use: No - SURGICAL HISTORY Hx Surgeries: Yes Other/Comment: colostomy bag, prostectomy, Colon resection - ANESTHESIA Hx Anesthesia: Yes Hx Anesthesia Reactions: No Hx Malignant Hyperthermia: No Meds Allergies/Adverse Reactions: Allergies Allergy/AdvReac Type Severity Reaction Status Date / Time No Known Allergies Allergy Verified 02/14/17 00:53 - Medications Medications: Current Medications Dextrose/Sodium Chloride (Dextrose 5%/0.45% Ns 1000 Ml) 1,000 mls @ 100 mls/hr IV .Q10H [facility] Last Admin: 02/14/17 03:05 Dose: 100 mls/hr Ondansetron HCl (Zofran Inj) 4 mg IVP Q6H PRN PRN Reason: Nausea/Vomiting Pantoprazole Sodium (Protonix Inj) 40 mg IVP DAILY [facility] Physical Exam - Constitutional Appears: No Acute Distress - Head Exam Head Exam: ATRAUMATIC, NORMOCEPHALIC - Eye Exam Eye Exam: EOMI, Normal appearance Pupil Exam: PERRL - ENT Exam ENT Exam: Mucous Membranes Dry - Respiratory Exam Respiratory Exam: NORMAL BREATHING PATTERN - Cardiovascular Exam Cardiovascular Exam: REGULAR RHYTHM - GI/Abdominal Exam GI & Abdominal Exam: Soft. absent: Distended, Firm, Guarding, Rebound, Tenderness - Extremities Exam Extremities exam: Positive for: normal capillary refill, pedal pulses present - Neurological Exam Neurological exam: Alert, CN II-XII Intact, Oriented x3 - Psychiatric Exam Psychiatric exam: Normal Affect, Normal Mood - Skin Skin Exam: Dry, Intact, Normal Color, Warm Results - Vital Signs Recent Vital Signs: Last Vital Signs Temp 98.1 F 02/14/17 05:06 Pulse 73 02/14/17 05:06 Resp 20 02/14/17 05:06 BP 123/75 02/14/17 05:06 Pulse Ox 99 02/14/17 05:06 - Labs Result Diagrams: 02/14/17 01:35 02/14/17 01:35 Labs: Laboratory Results - last 24 hr 02/14/17 02/14/17 01:35 01:35 WBC 5.0 D RBC 5.62 Hgb 16.1 D Hct 48.1 MCV 85.5 MCH 28.6 MCHC 33.5 RDW 15.0 H Plt Count 197 MPV 8.7 Neut % (Auto) 52.2 Lymph % (Auto) 26.7 [place] % (Auto) 19.0 H Eos % (Auto) 2.0 Baso % (Auto) 0.1 Neut # 2.6 Lymph # 1.3 [place] # 0.9 H Eos # 0.1 Baso # 0.0 Sodium 136 Potassium 3.6 Chloride 101 Carbon Dioxide 20 L Anion Gap 19 BUN 29 H Creatinine 1.5 Est GFR ( Amer) 54 Est GFR (Non-Af Amer) 45 Random Glucose 117 H Calcium 7.7 L Total Bilirubin 0.9 AST 20 ALT 31 Alkaline Phosphatase 101 Total Protein 8.2 Albumin 4.1 Globulin 4.1 H Albumin/Globulin Ratio 1.0 Lipase 44 Assessment & Plan - Assessment and Plan (Free Text) Plan: 81 M with small bowel obstruction -NPO, may possibly advance to CLD later today -IV fluids -Analgesics/Anti-emetics PRN -No surgical intervention at this time -Discussed with Dr. Grey Gordon PGY1
[2017-02-14] MEDS ORDERED: Influenza Vaccine 60 mcg/0.5 mL SYR (4YR UP) IM ONE (07:52)
--- NOTE | 2017-02-14 09:04 | RAD ---
PROCEDURE: Radiographs of the chest and abdomen (obstructive series) HISTORY: vomiting, diarrhea COMPARISON: No prior. TECHNIQUE: AP radiograph of the chest, with upright and supine radiographs of the abdomen. FINDINGS: CHEST: Lungs: Clear. Cardiovascular: Normal size heart. No pulmonary vascular congestion. Pleura: No pleural fluid. No pneumothorax. Other findings: None. ABDOMEN AND PELVIS: Bowel: Abnormal bowel gas pattern. Multiple dilated loops of small bowel suspicious for mechanical bowel obstruction. Differential air-fluid levels are seen on upright film. No free intraperitoneal air appreciated. No masses or abnormal intra-abdominal calcifications. Free air: None. Bones: Unremarkable. Other findings: None. IMPRESSION: Findings suspicious for mechanical bowel obstruction. Follow-up advised.
[2017-02-14 16:34] VITALS: O2SAT 95
--- NOTE | 2017-02-14 18:04 | CP.PCM.PN ---
Subjective - Date & Time of Evaluation Date of Evaluation: 02/14/17 Time of Evaluation: 08:55 - Subjective Subjective: Medicine note (PGY-1)--> Dr. Gutierrez's service Patient was seen and examined at bedside. Patient reports that she is doing well and has no new complaints. Patient denies fever, chills, nausea, vomiting, chest pain, palpitations, SOB, abdominal pain. Patient admits to passing flatus , great colostomy output and tolerating liquid. Objective - Vital Signs/Intake and Output Vital Signs (last 24 hours): Temp Pulse Resp BP Pulse Ox 98.7 F 88 20 108/70 95 02/14/17 15:15 02/14/17 15:15 02/14/17 15:15 02/14/17 15:15 02/14/17 15:15 - Medications Medications: Current Medications Amlodipine Besylate (Norvasc) 10 mg PO DAILY [facility] Last Admin: 02/14/17 10:47 Dose: 10 mg Apixaban (Eliquis) 2.5 mg PO BID [facility] Last Admin: 02/14/17 17:39 Dose: 2.5 mg Dextrose/Sodium Chloride (Dextrose 5%/0.45% Ns 1000 Ml) 1,000 mls @ 100 mls/hr IV .Q10H [facility] Last Admin: 02/14/17 17:39 Dose: 100 mls/hr Lisinopril (Zestril) 20 mg PO DAILY [facility] Last Admin: 02/14/17 10:47 Dose: 20 mg [facility] Last Admin: 02/14/17 17:38 Dose: 1,000 mg Ondansetron HCl (Zofran Inj) 4 mg IVP Q6H PRN PRN Reason: Nausea/Vomiting Last Admin: 02/14/17 06:13 Dose: 4 mg Pantoprazole Sodium (Protonix Inj) 40 mg IVP BID [facility] Last Admin: 02/14/17 10:47 Dose: 40 mg - Labs Labs: 02/14/17 01:35 02/14/17 01:35 - Constitutional Appears: Well, No Acute Distress - Head Exam Head Exam: ATRAUMATIC, NORMAL INSPECTION - Eye Exam Eye Exam: EOMI, Normal appearance - Respiratory Exam Respiratory Exam: Clear to Ausculation Bilateral, NORMAL BREATHING PATTERN - Cardiovascular Exam Cardiovascular Exam: REGULAR RHYTHM, +S1, +S2 - GI/Abdominal Exam GI & Abdominal Exam: Soft, Hypoactive Bowel Sounds. absent: Distended, Firm, Guarding, Rebound Additional comments: Colostomy bag in place - Extremities Exam Extremities Exam: Normal Inspection. absent: Calf Tenderness, Pedal Edema - Neurological Exam Neurological Exam: Alert, Awake, Oriented x3 - Psychiatric Exam Psychiatric exam: Normal Affect, Normal Mood - Skin Skin Exam: Normal Color Assessment and Plan (1) Small bowel obstruction Assessment & Plan: Resolving General surgery, Dr. Edmonds---> Help appreciated * No surgical intervention * Continue medical management * D5NS @ 100MLS/HR Status: Acute (2) Diabetes Assessment & Plan: Accuchecks Metformin 1,000mg PO BIDCC Status: Chronic (3) Hypertension Assessment & Plan: Norvasc 10mg PO daily Lisinopril 20mg PO daily Status: Chronic (4) Afib Assessment & Plan: Eliquis 2.5mg PO BID Status: Chronic (5) Prophylactic measure Assessment & Plan: GI: Protonix 40mg PO daily DVT: Eliquis 2.5 mg PO BID Zofran 4mg IVP Q6H prn Status: Acute
[2017-02-15] MEDS: Dextrose 5%/0.45% NS 1,000 ML IV SCH (02:55)
[2017-02-15 06:50] LABS: BASO % 0.4 % (0.0-2.0); EOS # 0.3 K/uL (0.0-0.7); EOS % 6.5 % (0.0-4.0); LYMPH # 0.8 K/uL (1.0-4.3); LYMPH % 18.9 % (20.0-40.0); MEAN CELL VOLUME 85.8 fL (80.0-94.0); MEAN CORPUSCULAR HEMOGLOBIN 28.7 pg (27.0-31.0); MEAN CORPUSCULAR HGB CONC 33.4 g/dL (33.0-37.0); MEAN PLATELET VOLUME 8.4 fL (7.2-11.7); MONO # 0.9 K/uL (0.0-0.8); MONO % 22.7 % (0.0-10.0); NRBC % 0.1 % (0.0-2.0); PLATELET COUNT 167 K/uL (130-400); RED CELL DISTRIBUTION WIDTH 14.3 % (11.5-14.5); WHITE BLOOD COUNT 4.2 K/uL (4.8-10.8)
[2017-02-15 07:13] LABS: ALB/GLOB RATIO 0.9 (1.0-2.1); BILIRUBIN,TOTAL 0.6 mg/dL (0.2-1.3); CALCIUM 7.8 mg/dl (8.6-10.4); MAGNESIUM 1.7 mg/dL (1.6-2.3); PHOSPHOROUS 3.2 mg/dL (2.5-4.5); POTASSIUM 3.7 mmol/L (3.6-5.2); TOTAL PROTEIN 7.1 g/dL (6.3-8.3)
--- NOTE | 2017-02-15 08:26 | CP.PCM.PN ---
Subjective - Date & Time of Evaluation Date of Evaluation: 02/15/17 Time of Evaluation: 06:55 - Subjective Subjective: General Surgery Note for Dr. Edmonds Patient seen and examined at bedside. Patient states that he has copious amount of stool output from colostomy and changed the bag multiple times overnight. He is tolerating diet and would like to eat more food. He denies any pain. Patient has no complaints. Objective - Vital Signs/Intake and Output Vital Signs (last 24 hours): Temp Pulse Resp BP Pulse Ox 98.0 F 93 H 20 100/66 95 02/14/17 23:25 02/14/17 23:25 02/14/17 23:25 02/14/17 23:25 02/14/17 23:25 Intake and Output: 02/15/17 02/15/17 06:59 18:59 Intake Total 1040 Output Total 200 Balance 840 - Medications Medications: Current Medications Amlodipine Besylate (Norvasc) 10 mg PO DAILY [facility] Last Admin: 02/14/17 10:47 Dose: 10 mg Apixaban (Eliquis) 2.5 mg PO BID [facility] Last Admin: 02/14/17 17:39 Dose: 2.5 mg Dextrose/Sodium Chloride (Dextrose 5%/0.45% Ns 1000 Ml) 1,000 mls @ 100 mls/hr IV .Q10H [facility] Last Admin: 02/15/17 02:55 Dose: 100 mls/hr Lisinopril (Zestril) 20 mg PO DAILY [facility] Last Admin: 02/14/17 10:47 Dose: 20 mg [facility]) [facility] Last Admin: 02/15/17 08:17 Dose: 1,000 mg Ondansetron HCl (Zofran Inj) 4 mg IVP Q6H PRN PRN Reason: Nausea/Vomiting Last Admin: 02/14/17 06:13 Dose: 4 mg Pantoprazole Sodium (Protonix Inj) 40 mg IVP BID [facility] Last Admin: 02/14/17 22:20 Dose: 40 mg - Labs Labs: 02/15/17 06:36 02/15/17 06:36 - Constitutional Appears: No Acute Distress - Head Exam Head Exam: ATRAUMATIC, NORMOCEPHALIC - Eye Exam Eye Exam: Normal appearance - ENT Exam ENT Exam: Mucous Membranes Moist - Respiratory Exam Respiratory Exam: NORMAL BREATHING PATTERN - Cardiovascular Exam Cardiovascular Exam: REGULAR RHYTHM - GI/Abdominal Exam GI & Abdominal Exam: Soft, Normal Bowel Sounds. absent: Distended, Firm, Guarding, Rigid, Tenderness, Rebound Additional comments: colostomy with brown stool output - Neurological Exam Neurological Exam: Alert, Awake, Oriented x3 - Psychiatric Exam Psychiatric exam: Normal Affect, Normal Mood - Skin Skin Exam: Dry, Normal Color, Warm Assessment and Plan - Assessment and Plan (Free Text) Plan: 81 M with resolving SBO -Heart healthy diet -July D/C IV fluids -Management as per primary -No surgical intervention at this time -Discussed with Dr. Grey Gordon PGY1
[2017-02-15 08:28] LABS: EOSINOPHIL 7 % (0-4); NEUTROPHIL 33 % (50-75); TOTAL CELLS COUNTED 100
[2017-02-15] MEDS ORDERED: Sodium Chloride 0.9% 1,000 ML IV SCH (09:45)
[2017-02-15 15:36] VITALS: BP 113/75; PULSE 96; TEMP 98
--- NOTE | 2017-02-15 18:43 | CP.PCM.DIS ---
Provider - Provider Date of Admission: 02/14/17 03:28 Attending physician: Dinesh Gutierrez Jr, MD Time Spent in preparation of Discharge (in minutes): 35 Diagnosis - Discharge Diagnosis (1) Small bowel obstruction Status: Acute (2) Diabetes Status: Chronic (3) Hypertension Status: Chronic (4) Acute kidney injury Status: Acute (5) Afib Status: Chronic (6) Prophylactic measure Status: Acute Hospital Course - Lab Results Lab Results: Most Recent Lab Values WBC 4.2 K/uL (4.8-10.8) L 02/15/17 06:36 RBC 4.89 Mil/uL (4.40-5.90) 02/15/17 06:36 Hgb 14.0 g/dL (12.0-18.0) D 02/15/17 06:36 Hct 42.0 % (35.0-51.0) 02/15/17 06:36 MCV 85.8 fL (80.0-94.0) 02/15/17 06:36 MCH 28.7 pg (27.0-31.0) 02/15/17 06:36 MCHC 33.4 g/dL (33.0-37.0) 02/15/17 06:36 RDW 14.3 % (11.5-14.5) 02/15/17 06:36 Plt Count 167 K/uL (130-400) 02/15/17 06:36 MPV 8.4 fL (7.2-11.7) 02/15/17 06:36 Neut % (Auto) 51.5 % (50.0-75.0) 02/15/17 06:36 Lymph % (Auto) 18.9 % (20.0-40.0) L 02/15/17 06:36 [place] % (Auto) 22.7 % (0.0-10.0) H 02/15/17 06:36 Eos % (Auto) 6.5 % (0.0-4.0) H 02/15/17 06:36 Baso % (Auto) 0.4 % (0.0-2.0) 02/15/17 06:36 Neut # 2.2 K/uL (1.8-7.0) 02/15/17 06:36 Lymph # 0.8 K/uL (1.0-4.3) L 02/15/17 06:36 [place] # 0.9 K/uL (0.0-0.8) H 02/15/17 06:36 Eos # 0.3 K/uL (0.0-0.7) 02/15/17 06:36 Baso # 0.0 K/uL (0.0-0.2) 02/15/17 06:36 Neutrophils % (Manual) 33 % (50-75) L 02/15/17 06:36 Band Neutrophils % 13 % (0-2) H* 02/15/17 06:36 Lymphocytes % (Manual) 21 % (20-40) 02/15/17 06:36 Monocytes % (Manual) 26 % (0-10) H 02/15/17 06:36 Eosinophils % (Manual) 7 % (0-4) H 02/15/17 06:36 Toxic Granulation Present 02/15/17 06:36 Platelet Estimate Normal (NORMAL) 02/15/17 06:36 RBC Morphology Normal 02/15/17 06:36 Sodium 136 mmol/L (132-148) 02/15/17 06:36 Potassium 3.7 mmol/L (3.6-5.2) 02/15/17 06:36 Chloride 105 mmol/L (98-107) 02/15/17 06:36 Carbon Dioxide 22 mmol/L (22-30) 02/15/17 06:36 Anion Gap 13 (10-20) 02/15/17 06:36 BUN 36 mg/dL (9-20) H 02/15/17 06:36 Creatinine 1.6 mg/dL (0.8-1.5) H 02/15/17 06:36 Est GFR ( Amer) 50 02/15/17 06:36 Est GFR (Non-Af Amer) 42 02/15/17 06:36 POC Glucose (mg/dL) 109 mg/dL (65-110) 02/15/17 11:46 Random Glucose 97 mg/dL (75-110) 02/15/17 06:36 Calcium 7.8 mg/dl (8.6-10.4) L 02/15/17 06:36 Phosphorus 3.2 mg/dL (2.5-4.5) 02/15/17 06:36 Magnesium 1.7 mg/dL (1.6-2.3) 02/15/17 06:36 Total Bilirubin 0.6 mg/dL (0.2-1.3) 02/15/17 06:36 AST 17 U/L (17-59) 02/15/17 06:36 ALT 29 U/L (21-72) 02/15/17 06:36 Alkaline Phosphatase 72 U/L (38-126) 02/15/17 06:36 Total Protein 7.1 g/dL (6.3-8.3) 02/15/17 06:36 Albumin 3.3 g/dL (3.5-5.0) L 02/15/17 06:36 Globulin 3.8 gm/dL (2.2-3.9) 02/15/17 06:36 Albumin/Globulin Ratio 0.9 (1.0-2.1) L 02/15/17 06:36 Lipase 44 U/L (23-300) 02/14/17 01:35 - Hospital Course Hospital Course: HPI ( As per admission): Patient is an 81 year old male with PMHx DM, GERD, HTN, CKD, Prostate CA and Colorectal CA s/p resection with colostomy. Patient started having diarrhea on Tuesday about 5 times per day. Patient had no appetite over the weekend. Patient had one episode of vomiting around midnight. Both bowel movements and vomiting have been nonbloody. Patient has had multiple similar admissions and it usually resolved with bowel rest. Patient currently refuses NG tube placement. Patient has some nausea, but currently states he has no abdominal pain. Patient denies shortness of breath or chest pain Hospital Course: Patient was admitted with the consideration of small bowel obstruction. Surgical consult was placed to Dr. Edmonds, who recommended no surgical intervention and patient to placed on IV fluid maintenance and to advance diet as tolerated. During the course of admission, patient refused the NG tube placement. Patient's hospital course was uneventful and patient's symptoms started to resolve. Patient was passing flatus, copious colostomy output and tolerating diet without nausea and vomiting. Patient was medically cleared by his medical care team. Patient was then discharged with instructions to follow up with his PMD. Pertinent imaging: Abdomen Obstructive Series X-ray: Abnormal bowel gas pattern. Multiple dilated loops of small bowel suspicious for mechanical bowel obstruction. Differential air-fluid levels are seen on upright film. No free intraperitoneal air appreciated. No masses or abnormal intra-abdominal calcifications This is a brief summary of events. For a complete course, please refer to the medical records Discharge Exam - Head Exam Head Exam: ATRAUMATIC, NORMOCEPHALIC - Eye Exam Eye Exam: EOMI, Normal appearance - ENT Exam ENT Exam: Mucous Membranes Moist - Respiratory Exam Respiratory Exam: Clear to PA & Lateral, NORMAL BREATHING PATTERN - Cardiovascular Exam Cardiovascular Exam: REGULAR RHYTHM, +S1, +S2 - GI/Abdominal Exam GI & Abdominal Exam: Soft. absent: Diminished Bowel Sounds, Distended, Firm, Guarding, Tenderness Additional comments: Mildly decreased bowel sounds Copious colostomy output - Extremities Exam Extremities exam: calf tenderness - Neurological Exam Neurological exam: Alert, Oriented x3 - Psychiatric Exam Psychiatric exam: Normal Affect - Skin Skin Exam: Normal Color Discharge Plan - Follow Up Plan Condition: STABLE Disposition: HOME/ ROUTINE Instructions: Heart Healthy Diet (DC), Bowel Obstruction (DC) Additional Instructions: Please discharge patient home as per Dr. Gutierrez Please resume all your home medication as prescribed Please follow up with your PMD in 1-2 weeks Please return to the hospital if symptoms worsens or symptoms of fever, chills, nausea, vomiting, abdominal pain and lack of colostomy output. Referrals: Dinesh Gutierrez Jr., MD [Medical Doctor] -
[2017-02-16] MEDS ORDERED: Pneumococcal 23-Valent Vaccine IM ONE (10:00)
== END 2017-02-15 16:14 | disposition home or self-care (01) | DRG 390 ==
LOC: C.ER 00:39 → OBSVTOIN 03:28 → C.9E 03:28 → C.6T 03:28
PROVIDERS: ADMIT Internal Medicine; ATTEND Internal Medicine
DX: K56.609 Unspecified intestinal obstruction, unspecified as to partial versus complete obstruction (principal); E11.22 Type 2 diabetes mellitus with diabetic chronic kidney disease; I48.91 Unspecified atrial fibrillation; I12.9 Hypertensive chronic kidney disease with stage 1 through stage 4 chronic kidney disease, or unspecified chronic kidney disease; Z85.46 Personal history of malignant neoplasm of prostate; N18.9 Chronic kidney disease, unspecified; Z93.3 Colostomy status; K21.9 Gastro-esophageal reflux disease without esophagitis; Z85.048 Personal history of other malignant neoplasm of rectum, rectosigmoid junction, and anus

== ENCOUNTER 2017-05-06 18:59 | Emergency (ER) | payer MEDICARE, BC ==
[2017-05-06 18:59] VITALS: BMI 28.3
[2017-05-06 20:27] VITALS: RESP 20
[2017-05-06] MEDS ORDERED: Sodium Chloride 0.9% 1,000 ML IV ONE (21:27)
--- NOTE | 2017-05-06 21:27 | C.PDOC ---
History Of Present Illness Patient is an 82 y/o female who presents to the ED with complaints of nausea, vomiting, and some diarrhea since Tuesday. Patient denies fever or chills; notes not tolerating PO. No other physical complaints at this time. Time Seen by Provider: 05/06/17 21:26 Chief Complaint (Nursing): GI Problem History Per: Patient History/Exam Limitations: no limitations Onset/Duration Of Symptoms: Days (since Tuesday ) Current Symptoms Are (Timing): Still Present Severity: Moderate Pain Scale Rating Of: 4 Associated Symptoms: Nausea, Vomiting, Diarrhea. denies: Fever, Chills Recent travel outside of the [place]: No Past Medical History Reviewed: Historical Data, Nursing Documentation, Vital Signs Vital Signs: Last Vital Signs Temp 98.7 F 05/06/17 20:22 Pulse 96 H 05/06/17 20:22 Resp 20 05/06/17 20:22 BP 123/81 05/06/17 20:22 Pulse Ox 96 05/06/17 22:03 - Medical History PMH: Atrial Fibrillation (on eliquis), Cardia Arrhythmia (afib), Diabetes, HTN, Malignancy (colon CA, rectal CA), Migraine Denies: Chronic Kidney Disease Surgical History: No Surg Hx - [facility] Procedures INSERT GASTRIC TUBE NEC (06/14/14) OTH INCIDENT APPENDECTOMY (08/08/12) OTH LYSIS-PERITONEAL ADHES (08/08/12) PARENTERAL INFUSION OF CONCENTRATED NUT. SUBSTANCE (09/27/13) PART SM BOWEL RESECT NEC (08/08/12) VACCINATION NEC (09/27/13) VENOUS CATHETERIZATION NEC (09/27/13) Family History: States: Unknown Family Hx - Social History Hx Tobacco Use: No Hx Alcohol Use: No Hx Substance Use: No - Immunization History Hx Tetanus Toxoid Vaccination: No Hx Influenza Vaccination: Yes Hx Pneumococcal Vaccination: Yes Review Of Systems Constitutional: Negative for: Fever, Chills ENT: Negative for: Throat Pain Cardiovascular: Negative for: Chest Pain Respiratory: Negative for: Shortness of Breath Gastrointestinal: Positive for: Nausea, Vomiting, Diarrhea Musculoskeletal: Negative for: Back Pain Skin: Negative for: Rash Neurological: Negative for: Weakness Psych: Negative for: Anxiety Physical Exam - Physical Exam Appears: Non-toxic, No Acute Distress Skin: Warm, Dry Head: Normacephalic Eye(s): bilateral: Normal Inspection Oral Mucosa: Moist Neck: Supple Chest: Symmetrical Cardiovascular: Rhythm Regular, No Murmur Respiratory: Normal Breath Sounds, No Rales, No Rhonchi, No Wheezing Gastrointestinal/Abdominal: Soft, No Guarding, No Rebound, Other (tympanic to percussion; left colostomy bag filled with loose feces) Back: Normal Inspection Extremity: Normal ROM (full range of motion to lower extremities), No Tenderness , No Pedal Edema Extremity: Bilateral: Atraumatic Neurological/Psych: Oriented x3, Normal Speech, Normal Cognition, Other (no focal deficits ) Gait: Steady ED Course And Treatment - Laboratory Results Result Diagrams: 05/06/17 21:57 05/06/17 21:57 ECG: Interpreted By Me, Viewed By Me ECG Rhythm: Sinus Rhythm (95), Nonspecific Changes O2 Sat by Pulse Oximetry: 96 Pulse Ox Interpretation: Normal - Radiology CXR: Interpreted by Me, Viewed By Me CXR Interpretation: No: Infiltrates, Fracture, Pnemothorax Progress Note: EKG, blood work, CXR, and UA ordered. Zofran and IV fluids administered. Reevaluation Time: 23:45 Reassessment Condition: Improved Disposition Counseled Patient/Family Regarding: Studies Performed, Diagnosis, Need For Followup - Disposition Referrals: Dinesh Gutierrez Jr., MD [Medical Doctor] - Disposition: HOME/ ROUTINE Disposition Time: 21:27 Condition: FAIR Additional Instructions: Please return if symptoms recur. May use [employer] for the diarrhea Instructions: Acute Diarrhea (ED) Forms: [facility] (Maltese) - Clinical Impression Clinical Impression: Diarrhea - Scribe Statement The provider has reviewed the documentation as recorded by the Scribe Myrna Stovall All medical record entries made by the Scribe were at my direction and personally dictated by me. I have reviewed the chart and agree that the record accurately reflects my personal performance of the history, physical exam, medical decision making, and the department course for this patient. I have also personally directed, reviewed, and agree with the discharge instructions and disposition.
[2017-05-06] MEDS ORDERED: Sodium Chloride 0.9% 1,000 ML ONE (22:00)
[2017-05-06 22:07] LABS: BASO % 0.3 % (0.0-2.0); HEMOGLOBIN 16.4 g/dL (12.0-18.0); LYMPH # 0.7 K/uL (1.0-4.3); LYMPH % 16.4 % (20.0-40.0); MEAN CELL VOLUME 85.5 fL (80.0-94.0); MEAN CORPUSCULAR HEMOGLOBIN 28.9 pg (27.0-31.0); MEAN CORPUSCULAR HGB CONC 33.8 g/dL (33.0-37.0); MEAN PLATELET VOLUME 8.4 fL (7.2-11.7); MONO # 0.8 K/uL (0.0-0.8); MONO % 18.7 % (0.0-10.0); NEUT # 2.7 K/uL (1.8-7.0); NEUT % 63.6 % (50.0-75.0); NRBC % 0.2 % (0.0-2.0); RBC 5.68 Mil/uL (4.40-5.90); WHITE BLOOD COUNT 4.2 K/uL (4.8-10.8)
[2017-05-06 22:11] LABS: INR 1.1; PROTHROMBIN TIME 12.7 SECONDS (9.7-12.2)
[2017-05-06 22:16] LABS: ALB/GLOB RATIO 1.1 (1.0-2.1); ALBUMIN 4.3 g/dL (3.5-5.0); CALCIUM 9.3 mg/dl (8.6-10.4)
[2017-05-06 22:17] LABS: SQUAMOUS EPITHIAL 2 /hpf (0-5); URINE BACTERIA RARE (<OCC); URINE BILIRUBIN 1+ (NEGATIVE); URINE BLOOD NEGATIVE (NEGATIVE); URINE CLARITY Hazy (Clear); URINE GLUCOSE (UA) NORMAL (Normal); URINE LEUKOCYTE ESTERASE NEG Leu/uL (Negative); URINE NITRATE NEGATIVE (NEGATIVE); URINE PROTEIN 1+ mg/dL (NEGATIVE)
[2017-05-06 22:22] LABS: URINE COLOR YELLOW (YELLOW)
[2017-05-07 00:19] VITALS: BP 129/77; PULSE 84; TEMP 98; O2SAT 100
--- NOTE | 2017-05-07 08:45 | RAD ---
HISTORY: abd pain COMPARISON: Chest x-ray performed 06/25/15 TECHNIQUE: Chest, one view. FINDINGS: Examination limited by habitus. LUNGS: No focal consolidation. Please note that chest x-ray has limited sensitivity for the detection of pulmonary masses. PLEURA: No significant pleural effusion identified. No definite pneumothorax . CARDIOVASCULAR: Heart size appears within normal limits. OSSEOUS STRUCTURES: Degenerative changes of the spine. VISUALIZED UPPER ABDOMEN: Elevation of the right hemidiaphragm. OTHER FINDINGS: None. IMPRESSION: No focal consolidation. Elevation of the right hemidiaphragm.
--- NOTE | 2017-05-09 11:17 | CARD ---
APPROVED REPORT EKG Measurement Heart [id number] <Conclusion> Atrial fibrillation Left anterior fascicular block Cannot rule out Anterior infarct, age undetermined Abnormal ECG
== END 2017-05-07 00:19 | disposition home or self-care (01) ==
LOC: C.ER 18:59
DX: R19.7 Diarrhea, unspecified (principal); E11.9 Type 2 diabetes mellitus without complications; I10 Essential (primary) hypertension; I48.91 Unspecified atrial fibrillation; Z79.01 Long term (current) use of anticoagulants; Z85.038 Personal history of other malignant neoplasm of large intestine
CPT/HCPCS: 71045; 80053; 81001; 83690; 85025; 85610; 85730; 96361; 96374; 99284; J2405; J7040